=== PATIENT | male | born 1965 | race Caucasian/White ===

== ENCOUNTER 2016-07-12 13:18 | Emergency (ER) | payer SELFPAY ==
[2016-07-12 14:17] LABS: ABSOLUTE BASOPHILS # (AUTO) 0.1 10^3/uL (0.0-0.2); ABSOLUTE EOSINOPHILS # (AUTO) 0.2 10^3/uL (0.0-0.6); ABSOLUTE LYMPHOCYTES (AUTO) 1.9 10^3/uL (0.5-4.7); ABSOLUTE MONOCYTES (AUTO) 0.6 10^3/uL (0.1-1.4); ABSOLUTE NEUT (AUTO) 2.5 10^3/uL (1.7-8.2); BASOPHILS % (AUTO) 1.1 % (0-2); EOSINOPHILS % (AUTO) 3.4 % (0-6); HEMATOCRIT 43.6 % (37.9-51.0); HEMOGLOBIN 15.4 g/dL (13.5-17.0); HGB HCT DIFFERENCE 2.6; LYMPHOCYTES % (AUTO) 36.4 % (13-45); MEAN CORPUSCULAR HGB CONC 35.3 g/dL (32.0-36.0); MEAN CORPUSCULAR VOLUME 99 fl (80-97); MONOCYTES % (AUTO) 11.6 % (3-13); RED BLOOD COUNT 4.39 10^6/uL (4.35-5.55); RED CELL DISTRIBUTION WIDTH 13.8 % (11.5-14.0); SEGMENTED NEUTROPHILS % (AUTO) 47.5 % (42-78); WHITE BLOOD COUNT 5.2 10^3/uL (4.0-10.5)
--- NOTE | 2016-07-12 14:54 | ER Document Report ---
ED General - General Time seen by provider: 14:10 Mode of Arrival: Medic Information source: Patient TRAVEL OUTSIDE OF THE [place] IN LAST 30 DAYS: No - HPI Patient complains to provider of: Chest pain and left arm numbness Onset: Other - 3-4 weeks ago Onset/Duration: Constant Associated symptoms: Other - see above <AARON COLVIN - Last Filed: 07/12/16 15:00> <AMADOU MORTON - Last Filed: 07/12/16 16:27> - General Chief Complaint: Chest Pain Stated Complaint: FACIAL SWELLING Notes: 51-year-old male with no history of cardiac disease presents to the ED via EMS complaining of substernal chest pain that started 3-4 weeks ago. Patient states that the pain has occurred daily and intermittently throughout the past 3 -4 weeks. The duration of the pain varies and lasts for minutes to all day. Patient states that he usually gets a racing heart associated with the chest pain. Patient is additionally complaining of left arm pain and numbness to digits 3, 4, and 5 of the left hand. Patient states that he is feeling very tired and is unable to work. Patient states he is drinking normally but has lost his appetite and is not eating anymore. Patient additionally complains of diarrhea and shortness of breath. Patient is requesting to be admitted for his chronic pancreatitis. He admits to having withdrawals secondary to opiate dependency. Patient denies having a primary care provider, and states that he has not seen anyone in the past 4 weeks regarding his symptoms. Patient also denies being on any medications. Patient states he is a smoker and occasionally drinks alcohol. (AARON COLVIN) - Related Data Allergies/Adverse Reactions: No Known Allergies Allergy (Verified 03/18/15 17:34) Past Medical History - General Information source: Patient - Social History Smoking Status: Current Every Day Smoker Frequency of alcohol use: Occasional Drug Abuse: None Family History: Reviewed & Not Pertinent - Past Medical History Cardiac Medical History: Reports: None Renal/ Medical History: Denies: Hx Peritoneal Dialysis GI Medical History: Reports: Hx Ulcer Past Surgical History: Reports: Hx Abdominal Surgery - HERNIA, Hx Herniorrhaphy - Immunizations Hx Diphtheria, Pertussis, Tetanus Vaccination: No <AARON COLVIN - Last Filed: 07/12/16 15:00> Review of Systems - Review of Systems Constitutional: See HPI, Malaise EENT: No symptoms reported Cardiovascular: See HPI, Chest pain, Heart racing Respiratory: See HPI, Short of breath - not currently Gastrointestinal: See HPI, Diarrhea, Poor appetite. denies: Nausea, Vomiting Genitourinary: No symptoms reported Male Genitourinary: No symptoms reported Musculoskeletal: See HPI, Other - left arm pain Skin: No symptoms reported Hematologic/Lymphatic: No symptoms reported Neurological/Psychological: No symptoms reported, Numbness - left 3, 4, and 5 digits. denies: Anxiety -: Yes All other systems reviewed and negative <AARON COLVIN - Last Filed: 07/12/16 15:00> Physical Exam - General General appearance: Alert In distress: None - HEENT Head: Normocephalic, Atraumatic Eyes: Normal Conjunctiva: Normal Cornea: Normal Extraocular movements intact: Yes Eyelashes: Normal Pupils: PERRL Mouth/Lips: Normal Mucous membranes: Normal Pharynx: Normal - Respiratory Respiratory status: No respiratory distress Breath sounds: Normal - Cardiovascular Rhythm: Regular Heart sounds: Normal auscultation Pulses: Normal: Radial Normal capillary refill: Yes - Abdominal Inspection: Normal - Back Back: Normal - Extremities General upper extremity: Normal inspection, Normal ROM General lower extremity: Normal inspection, Normal ROM - Neurological Neuro grossly intact: Yes Cognition: Normal Orientation: AAOx4 Mia Coma Scale Eye Opening: Spontaneous Mia Coma Scale Verbal: Oriented Mia Coma Scale Motor: Obeys Commands Mia Coma Scale Total: 15 Speech: Normal - Psychological Associated symptoms: Normal affect, Tearful - Skin Skin Temperature: Warm Skin Moisture: Dry Skin Color: Normal <AARON COLVIN - Last Filed: 07/12/16 15:00> <AMADOU MORTON - Last Filed: 07/12/16 16:27> - Vital signs Vitals: Temp Pulse Resp BP Pulse Ox 98.5 F 98 18 156/87 H 97 07/12/16 13:39 07/12/16 13:39 07/12/16 13:39 07/12/16 13:39 07/12/16 13:39 (AARON COLVIN) (AMADOU MORTON) Course - Laboratory Result Diagrams: 07/12/16 13:33 07/12/16 14:41 <AARON COLVIN - Last Filed: 07/12/16 15:00> - Laboratory Result Diagrams: 07/12/16 13:33 07/12/16 14:41 <AMADOU MORTON - Last Filed: 07/12/16 16:27> - Re-evaluation Re-evalutation: 07/12/16 16:21 I personally performed the services described in the documentation, reviewed and edited the documentation which was dictated to my scribe in my presence, and it accurately records my words and actions. 51-year-old male that presents emergency per with a constellation of symptoms all of which been going on for 3 weeks. He says he has swelling in his face I don't appreciate any swelling in his face. He denies any dental problems difficulty breathing or swallowing nor do I see anything on examination of concern. He said for the past 3 weeks he's had constant left-sided chest pain when he moves or stretches. It has been constant 24 7 for 3 weeks and has not changed. 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 He said that the last 2 digits on his left hand have also been taking relief for the last 3 weeks as well. He denies any headache new blurred vision double vision history of trauma or fall. He denies any exertional chest pain or shortness of breath occasionally gets diarrhea but no blood in the stool. He is a chronic alcoholic with his alcohol level today in the 200 range. He has a history of chronic pancreatitis. His AST a LT and lipase are improved today with the exception of a LT. The lipase is normal at 156 no acute abdominal epigastric tenderness vomiting or concerns for acute pancreatitis. He also admits to getting Percocet on the street. Explained to him not to use anything with Tylenol in it with his liver problems. EKG chest x-ray cardiac enzymes are negative do not think that this is an acute cardiac event. I do believe however the patient has a constellation of problems including his alcoholism his substance abuse is elevated blood pressure although I checked his blood pressure at the bedside prior to discharge and is 125/91. For this reason I explained to him that I want him to follow up primary care physician at the clinic in 2-3 days. And discussed reasons for ED return sooner (AMADOU MORTON) - Vital Signs Vital signs: Temp Pulse Resp BP Pulse Ox 98.5 F 98 11 L 156/87 H 96 07/12/16 13:39 02/07/17 13:39 07/12/16 14:00 07/12/16 13:39 07/12/16 16:00 (AARON COLVIN) (AMADOU MORTON) - Laboratory Laboratory results interpreted by me: 07/12/16 07/12/16 13:33 14:41 MCV 99 H MCH 35.0 H Plt Count 133 L Sodium 134.0 L Chloride 95 L BUN 6 L Glucose 70 L Total Bilirubin 1.6 H AST 599 H ALT 404 H (AARON COLVIN) (AMADOU MORTON) - EKG Interpretation by Me Additional EKG results interpreted by me: 07/12/16 16:23 EKG interpreted by myself to reveal sinus rhythm at 99 bpm with no acute ST segment elevation or depression (AMADOU MORTON) Discharge <AARON COLVIN - Last Filed: 07/12/16 15:00> <AMADOU MORTON - Last Filed: 07/12/16 16:27> - Discharge Clinical Impression: chronic alcoholism, Narcotic abuse Chest pain Qualifiers: Chest pain type: unspecified Qualified Code(s): R07.9 - Chest pain, unspecified Chronic pancreatitis Qualifiers: Pancreatitis type: other Qualified Code(s): K86.1 - Other chronic pancreatitis Condition: Stable Disposition: HOME, SELF-CARE Instructions: Chest Pain of Unclear Cause ([facility]) Additional Instructions: Chest Pain of Unclear Cause, chronic alcoholism with elevated liver enzymes, narcotic substance abuse The exact cause of your chest pain isn't clear. Fortunately, there is no evidence of a dangerous medical condition. Further testing may be required to find the source of the pain. Most often, we find that this pain is coming from the chest wall -- the muscles or rib joints in the chest. But chest pain can come from the lung and lung lining, the esophagus, the heart valves or heart lining, and even the stomach or gallbladder. Rest. Eat lightly until the pain is gone. We may prescribe medicine for pain and inflammation. You should call the physician immediately if the pain radiates to the shoulder, jaw or arms; if you start to run a fever or develop a cough; or if you develop shortness of breath, or other new or alarming symptoms. Referrals: [facility] [Provider Group] - Follow up tomorrow ([facility] for a follow -up appointment to be seen in 2-3 days return for increasing worsening or new symptoms) Scribe Documentation - Scribe Written by Scribe:: Ananth Milligan, 07/12/2016 1500 acting as scribe for :: Sukhwinder <AARON COLVIN - Last Filed: 07/12/16 15:00>
[2016-07-12 15:09] LABS: ALANINE AMINOTRANSFERASE 404 U/L (21-72); ALBUMIN 4.6 g/dL (3.5-5.0); ALCOHOL 234 mg/dL (NONE DETECTED); ALKALINE PHOSPHATASE 90 U/L (38-126); ANION GAP 14 (5-19); ASPARTATE AMINO TRANSFERASE 599 U/L (17-59); BILIRUBIN,TOTAL 1.6 mg/dL (0.2-1.3); BLOOD UREA NITROGEN 6 mg/dL (7-20); CALCIUM 8.7 mg/dL (8.4-10.2); CARBON DIOXIDE 25 mmol/L (22-30); CHLORIDE 95 mmol/L (98-107); CREATININE RESULT 0.56 mg/dL (0.52-1.25); GLUCOSE 70 mg/dL (75-110); LIPASE 156.4 U/L (23-300); POTASSIUM 4.4 mmol/L (3.6-5.0); TOTAL PROTEIN 7.2 g/dL (6.3-8.2)
[2016-07-12 15:20] LABS: TROPONIN I < 0.012 ng/mL
[2016-07-12 16:30] VITALS: BP 125/91
--- NOTE | 2016-07-12 18:57 | EKG REPORT ---
SEVERITY:- ABNORMAL ECG - SINUS RHYTHM RIGHT ATRIAL ABNORMALITY : Confirmed by: Kunal Sepulveda MD 12-Jul-2016 18:56:46
== END 2016-07-12 16:43 | disposition home or self-care (01) ==
LOC: ER 13:18
DX: R07.9 Chest pain, unspecified (principal); K86.1 Other chronic pancreatitis; R53.81 Other malaise; R20.0 Anesthesia of skin; F17.200 Nicotine dependence, unspecified, uncomplicated
CPT/HCPCS: 36415; 71010; 80053; 80307; 83690; 83880; 84484; 85025; 93005; 93010; 99285

== ENCOUNTER 2016-07-18 22:18 | Emergency (ER) | payer SELFPAY ==
[2016-07-18] MEDS ORDERED: LIDOCAINE 1% INJ-PF (10 MG/ML) 30 ML SDV INJ ONE (23:21)
[2016-07-18] MEDS ORDERED: DIPH/PERTUSS(ACELL)/TETANUS VAC/PF 0.5 ML SYR (>=10YO) IM ONE (23:24)
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
[2016-07-19] MEDS ORDERED: OXYCODONE-ACETAMINOPHEN 5-325 MG TABLET PO ONE (00:40)
[2016-07-19] MEDS ORDERED: PENICILLIN V POTASSIUM 500 MG TABLET PO ONE (00:40)
[2016-07-19] MEDS ORDERED: HYDROCODONE/ACETAMINOPHEN 5-325 MG 6 TAB/DSPK PO PRN (01:39)
[2016-07-19 01:54] VITALS: BP 134/82
== END 2016-07-19 01:55 | disposition home or self-care (01) ==
LOC: ER 22:18
PROC: 0HQFXZZ Repair Right Hand Skin, External Approach (ICD-10-PCS; principal; 2016-07-18)
DX: S61.214A Laceration without foreign body of right ring finger without damage to nail, initial encounter (principal); S00.12XA Contusion of left eyelid and periocular area, initial encounter; S00.11XA Contusion of right eyelid and periocular area, initial encounter; Y04.2XXA Assault by strike against or bumped into by another person, initial encounter; Y93.84 Activity, sleeping; R51 Headache; K02.9 Dental caries, unspecified; K08.89 Other specified disorders of teeth and supporting structures; H53.8 Other visual disturbances; F17.200 Nicotine dependence, unspecified, uncomplicated
CPT/HCPCS: 99284; 90471; 70450; 70486; 72125; 90715; 12001; J3490

== ENCOUNTER 2016-07-26 15:18 | Emergency (ER) | payer SELFPAY ==
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
[2016-07-26 16:14] LABS: ABSOLUTE BASOPHILS # (AUTO) 0.2 10^3/uL (0.0-0.2); ABSOLUTE EOSINOPHILS # (AUTO) 0.2 10^3/uL (0.0-0.6); ABSOLUTE LYMPHOCYTES (AUTO) 2.2 10^3/uL (0.5-4.7); ABSOLUTE NEUT (AUTO) 3.2 10^3/uL (1.7-8.2); BASOPHILS % (AUTO) 3.1 % (0-2); EOSINOPHILS % (AUTO) 2.9 % (0-6); HEMOGLOBIN 14.2 g/dL (13.5-17.0); HGB HCT DIFFERENCE 1.6; LYMPHOCYTES % (AUTO) 32.4 % (13-45); MEAN CORPUSCULAR HEMOGLOBIN 35.2 pg (27.0-33.4); MEAN CORPUSCULAR HGB CONC 34.6 g/dL (32.0-36.0); MEAN CORPUSCULAR VOLUME 102 fl (80-97); MONOCYTES % (AUTO) 14.1 % (3-13); RED BLOOD COUNT 4.03 10^6/uL (4.35-5.55); SEGMENTED NEUTROPHILS % (AUTO) 47.5 % (42-78); WHITE BLOOD COUNT 6.8 10^3/uL (4.0-10.5)
[2016-07-26 16:16] LABS: APPEARANCE,URINE CLEAR; BILIRUBIN,URINE NEGATIVE (NEGATIVE); GLUCOSE, URINE NEGATIVE (NEGATIVE); KETONES,URINE NEGATIVE (NEGATIVE); LEUKOCYTE ESTERASE,URINE NEGATIVE (NEGATIVE); NITRITE,URINE NEGATIVE (NEGATIVE); PROTEIN,URINE NEGATIVE (NEGATIVE); URINE SPECIFIC GRAVITY 1.005; UROBILINOGEN,URINE NEGATIVE mg/dL (<2.0)
[2016-07-26 16:19] LABS: PROTHROMBIN TIME 11.5 SEC (11.4-15.4)
[2016-07-26 16:20] LABS: PARTIAL THROMBOPLASTIN TIME 28.7 SEC (23.5-35.8)
[2016-07-26 16:32] LABS: ALANINE AMINOTRANSFERASE 79 U/L (21-72); ALKALINE PHOSPHATASE 93 U/L (38-126); ANION GAP 16 (5-19); ASPARTATE AMINO TRANSFERASE 112 U/L (17-59); BILIRUBIN,TOTAL 0.6 mg/dL (0.2-1.3); BLOOD UREA NITROGEN 11 mg/dL (7-20); CALCIUM 9.5 mg/dL (8.4-10.2); CARBON DIOXIDE 25 mmol/L (22-30); CHLORIDE 108 mmol/L (98-107); CREATININE RESULT 0.55 mg/dL (0.52-1.25); GLUCOSE 91 mg/dL (75-110); POTASSIUM 4.5 mmol/L (3.6-5.0); SODIUM 148.8 mmol/L (137-145); TOTAL PROTEIN 7.9 g/dL (6.3-8.2); URINE BARBITURATES SCREEN NEGATIVE; URINE METHADONE SCREEN NEGATIVE; URINE OPIATES LOW NEGATIVE; URINE PHENCYCLIDINE SCREEN NEGATIVE
[2016-07-26 16:44] LABS: ALCOHOL 373 mg/dL (NONE DETECTED)
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
[2016-07-26 21:33] VITALS: BP 139/82
--- NOTE | 2016-07-26 22:04 | EKG REPORT ---
SEVERITY:- NORMAL ECG - SINUS RHYTHM : Confirmed by: Yessi Turpin MD 26-Jul-2016 22:03:50
== END 2016-07-26 21:32 | disposition home or self-care (01) ==
LOC: ER 15:18
DX: S06.0X0A Concussion without loss of consciousness, initial encounter (principal); Y09 Assault by unspecified means; F10.229 Alcohol dependence with intoxication, unspecified; R51 Headache; H53.149 Visual discomfort, unspecified; R00.0 Tachycardia, unspecified; R11.0 Nausea; R41.3 Other amnesia; F17.200 Nicotine dependence, unspecified, uncomplicated; R41.0 Disorientation, unspecified
CPT/HCPCS: 36415; 80053; 80307; 81001; 85025; 85610; 85730; 93005; 93010; 99284

== ENCOUNTER 2017-03-05 15:22 | Emergency (ER) | payer SELFPAY ==
[2017-03-05] MEDS ORDERED: ONDANSETRON HCL INJ/PF 4 MG/2 ML SDV IV ONE (15:44)
[2017-03-05] MEDS ORDERED: NORMAL SALINE 1000 ML 1,000 ML IV PRN (15:44)
--- NOTE | 2017-03-05 15:54 | ER Document Report ---
ED Medical Screen (RME) - General Chief Complaint: Flank Pain Stated Complaint: FLANK PAIN Time Seen by Provider: 03/05/17 15:43 Mode of Arrival: Wheelchair Information source: Patient TRAVEL OUTSIDE OF THE [place] IN LAST 30 DAYS: No - HPI Patient complains to provider of: Bilateral flank pain, facial swelling Notes: 03/05/17 15:53 Patient is a 52-year-old male presenting to the emergency room today complaining of bilateral flank pain this been going on for the past few days and worsening, he also reports facial swelling with facial pain, nausea, patient has a history of pancreatitis from chronic alcoholism, states he is cut back to 1 [employer] hard lemonade daily - Related Data Allergies/Adverse Reactions: No Known Allergies Allergy (Verified 03/05/17 15:39) Past Medical History Renal/ Medical History: Denies: Hx Peritoneal Dialysis GI Medical History: Reports: Hx Ulcer Past Surgical History: Reports: Hx Abdominal Surgery - HERNIA, Hx Herniorrhaphy - Immunizations Hx Diphtheria, Pertussis, Tetanus Vaccination: No Physical Exam - Vital signs Vitals: Temp Pulse Resp BP Pulse Ox 97.6 F 99 16 136/93 H 95 03/05/17 15:35 03/05/17 15:35 03/05/17 15:35 03/05/17 15:35 03/05/17 15:35 Course - Vital Signs Vital signs: Temp Pulse Resp BP Pulse Ox 97.6 F 99 16 136/93 H 95 03/05/17 15:35 03/05/17 15:35 03/05/17 15:35 03/05/17 15:35 03/05/17 15:35
--- NOTE | 2017-03-05 17:35 | ER Document Report ---
ED General - General Mode of Arrival: Wheelchair Information source: Patient TRAVEL OUTSIDE OF THE [place] IN LAST 30 DAYS: No <KATHIE LUIS - Last Filed: 03/05/17 18:04> <FABI NIX - Last Filed: 03/05/17 20:48> - General Chief Complaint: Flank Pain Stated Complaint: FLANK PAIN Time Seen by Provider: 03/05/17 15:43 Notes: Patient is a 52 year old male presenting to the emergency department for back pain, facial and hand swelling, nausea, and right lower abdominal pain. Patient states that her symptoms have been present for just about a week. Patient states his symptoms are worsening. Patient has a history of alcoholic pancreatitis and states that he has limited his alcohol intake to 1 Code[employer] hard lemonade per day. Patient has a history of a hernia repair. Patient takes no regular medications and has no known drug allergies. Patient does not have primary care physician. (KATHIE LUIS) - Related Data Allergies/Adverse Reactions: No Known Allergies Allergy (Verified 03/05/17 15:39) Home Medications: Current Home Medications No Home Medications 03/05/17 [History] Past Medical History - General Information source: Patient - Social History Smoking Status: Current Every Day Smoker Chew tobacco use (# tins/day): No Smoking Education Provided: No Frequency of alcohol use: Social Drug Abuse: None Family History: None Patient has suicidal ideation: No Patient has homicidal ideation: No GI Medical History: Reports: Hx Ulcer Past Surgical History: Reports: Hx Abdominal Surgery - HERNIA, Hx Herniorrhaphy - Immunizations Hx Diphtheria, Pertussis, Tetanus Vaccination: No <KATHIE LUIS - Last Filed: 03/05/17 18:04> Review of Systems - Review of Systems Constitutional: No symptoms reported EENT: See HPI Cardiovascular: No symptoms reported Respiratory: No symptoms reported Gastrointestinal: No symptoms reported Genitourinary: No symptoms reported Male Genitourinary: No symptoms reported Musculoskeletal: See HPI, Back pain Skin: See HPI Hematologic/Lymphatic: No symptoms reported Neurological/Psychological: No symptoms reported -: Yes All other systems reviewed and negative <KATHIE LUIS - Last Filed: 03/05/17 18:04> Physical Exam - Vital signs Interpretation: Normal <KATHIE LUIS - Last Filed: 03/05/17 18:04> <FABI NIX - Last Filed: 03/05/17 20:48> - Vital signs Vitals: Temp Pulse Resp BP Pulse Ox 97.6 F 99 16 136/93 H 95 03/05/17 15:35 03/05/17 15:35 03/05/17 15:35 03/05/17 15:35 03/05/17 15:35 - Notes Notes: GENERAL: Alert, interacts well. Mild distress. HEAD: Normocephalic, atraumatic. Slight swelling to maxillary regions bilaterally. EYES: Appear normal. Pupils equal, round, and reactive to light. ENT: Moist mucus membranes, tongue midline. Strong EtOH odor on breath. Nasal congestion with cough. NECK: Full range of motion. Supple. Trachea midline. LUNGS: Rhonchi and wheezing. No respiratory distress. HEART: Regular rate and rhythm. No murmurs, gallops, or rubs. ABDOMEN: Soft, diffuse tenderness to palpation. Low right lower quadrant has a condiloma extending 8 cm in length. Hyperresonant to percussion. Non-distended. Normal bowel sounds. BACK: Tenderness to palpate the lumbar spinal musculature. EXTREMITIES: Moves all 4 extremities spontaneously. Normal strength. Normal radial pulses bilaterally. Tenderness to palpate the musculature of the right groin. No edema to lower extremities bilaterally. Slight minor swelling over the MCP joints of the hands bilaterally. Normal capillary refill. NEUROLOGICAL: Alert and oriented x3. Normal speech. No focal neurological deficits. GCS 15. PSYCH: Normal affect, normal mood. SKIN: Warm, dry, normal turgor. (KATHIE LUIS) Course - Laboratory Result Diagrams: 03/05/17 17:30 03/05/17 17:30 <KATHIE LUIS - Last Filed: 03/05/17 18:04> - Laboratory Result Diagrams: 03/05/17 17:30 03/05/17 17:30 <FABI NIX - Last Filed: 03/05/17 20:48> - Vital Signs Vital signs: Temp Pulse Resp BP Pulse Ox 97.6 F 71 16 129/88 H 95 03/05/17 19:36 03/05/17 19:36 03/05/17 15:35 03/05/17 19:36 03/05/17 19:36 - Laboratory Laboratory results interpreted by me: 03/05/17 03/05/17 17:30 17:30 RBC 3.79 L MCV 104 H MCH 36.7 H RDW 19.0 H Sodium 149.6 H Potassium 3.3 L Chloride 109 H BUN 4 L Creatinine 0.50 L Calcium 8.3 L Total Protein 5.6 L Albumin 3.2 L Discharge <KATHIE LUIS - Last Filed: 03/05/17 18:04> <FABI NIX - Last Filed: 03/05/17 20:48> - Discharge Clinical Impression: Swelling of face, Swelling of both hands, Right inguinal pain Acute alcohol intoxication Qualifiers: Complication of substance-induced condition: uncomplicated Qualified Code(s): F10.929 - Alcohol use, unspecified with intoxication, unspecified Lumbar back pain Qualifiers: Chronicity: unspecified Back pain laterality: bilateral Sciatica presence: without sciatica Qualified Code(s): M54.5 - Low back pain Condition: Stable Disposition: HOME, SELF-CARE Additional Instructions: The swelling you have noticed to your face and hands is probably related to chronic alcohol abuse. Chronic alcoholism contributes to nutritional abnormalities such as a low albumin and protein in your bloodstream. Low albumin and protein in your bloodstream often leads to swelling. The low back pain and right groin pain is probably related to muscle strain. For now you should stop drinking and eating nutritious diet. If you feel you cannot stop drinking on your own, go to [facility] tomorrow and ask for help with alcohol dependency. RETURN TO THE EMERGENCY ROOM IF ANY NEW OR WORSENING SYMPTOMS. Referrals: [facility] [Outside] - Follow up tomorrow [place] Attestation: 03/05/17 18:12 I personally performed the services described in the documentation, reviewed and edited the documentation which was dictated to the scribe in my presence, and it accurately records my words and actions. (FABI NIX) Scribe Documentation - Scribe Written by Ananth:: Ananth Muro, 03/05/2017 1800 acting as scribe for :: Marcial <KATHIE LUIS - Last Filed: 03/05/17 18:04>
[2017-03-05 17:43] LABS: ABSOLUTE BASOPHILS # (AUTO) 0.1 10^3/uL (0.0-0.2); ABSOLUTE EOSINOPHILS # (AUTO) 0.1 10^3/uL (0.0-0.6); ABSOLUTE LYMPHOCYTES (AUTO) 2.3 10^3/uL (0.5-4.7); ABSOLUTE MONOCYTES (AUTO) 0.4 10^3/uL (0.1-1.4); ABSOLUTE NEUT (AUTO) 3.5 10^3/uL (1.7-8.2); BASOPHILS % (AUTO) 0.9 % (0-2); EOSINOPHILS % (AUTO) 1.8 % (0-6); HEMATOCRIT 39.2 % (37.9-51.0); HEMOGLOBIN 13.9 g/dL (13.5-17.0); HGB HCT DIFFERENCE 2.5; LYMPHOCYTES % (AUTO) 36.4 % (13-45); MEAN CORPUSCULAR HEMOGLOBIN 36.7 pg (27.0-33.4); MEAN CORPUSCULAR HGB CONC 35.4 g/dL (32.0-36.0); MEAN CORPUSCULAR VOLUME 104 fl (80-97); MONOCYTES % (AUTO) 6.5 % (3-13); RED BLOOD COUNT 3.79 10^6/uL (4.35-5.55); SEGMENTED NEUTROPHILS % (AUTO) 54.4 % (42-78); WHITE BLOOD COUNT 6.4 10^3/uL (4.0-10.5)
[2017-03-05 18:04] LABS: ALANINE AMINOTRANSFERASE 36 U/L (21-72); ALBUMIN 3.2 g/dL (3.5-5.0); ALCOHOL 288 mg/dL (NONE DETECTED); ALKALINE PHOSPHATASE 74 U/L (38-126); ANION GAP 11 (5-19); ASPARTATE AMINO TRANSFERASE 36 U/L (17-59); BILIRUBIN,DIRECT 0.3 mg/dL (0.0-0.4); BILIRUBIN,TOTAL 0.7 mg/dL (0.2-1.3); BLOOD UREA NITROGEN 4 mg/dL (7-20); CALCIUM 8.3 mg/dL (8.4-10.2); CARBON DIOXIDE 30 mmol/L (22-30); CHLORIDE 109 mmol/L (98-107); GLUCOSE 81 mg/dL (75-110); LIPASE 73.6 U/L (23-300); POTASSIUM 3.3 mmol/L (3.6-5.0); SODIUM 149.6 mmol/L (137-145); TOTAL PROTEIN 5.6 g/dL (6.3-8.2)
[2017-03-05 18:17] LABS: C-REACTIVE PROTEIN 5.1 mg/L (<10.0); MAGNESIUM 1.9 mg/dL (1.6-2.3)
[2017-03-05 18:49] LABS: APPEARANCE,URINE CLEAR; BILIRUBIN,URINE NEGATIVE (NEGATIVE); GLUCOSE, URINE NEGATIVE (NEGATIVE); KETONES,URINE NEGATIVE (NEGATIVE); LEUKOCYTE ESTERASE,URINE NEGATIVE (NEGATIVE); NITRITE,URINE NEGATIVE (NEGATIVE); PROTEIN,URINE NEGATIVE (NEGATIVE); URINE SPECIFIC GRAVITY 1.004; UROBILINOGEN,URINE NEGATIVE mg/dL (<2.0)
[2017-03-05 19:03] LABS: URINE BARBITURATES SCREEN NEGATIVE; URINE METHADONE SCREEN NEGATIVE; URINE OPIATES LOW NEGATIVE; URINE PHENCYCLIDINE SCREEN NEGATIVE
[2017-03-05 19:38] VITALS: BP 129/88
== END 2017-03-05 19:36 | disposition home or self-care (01) ==
LOC: ER 15:22
DX: R22.0 Localized swelling, mass and lump, head (principal); M79.89 Other specified soft tissue disorders; F10.929 Alcohol use, unspecified with intoxication, unspecified; M54.5 Low back pain; R10.9 Unspecified abdominal pain; M54.9 Dorsalgia, unspecified; R51 Headache; F17.200 Nicotine dependence, unspecified, uncomplicated
CPT/HCPCS: 99284; 96361; 96374; 36415; 80307 ×2; 83690; 83735; 85025; 85652; 86140; 80053; 81001; J2405; J7030

== ENCOUNTER 2017-03-14 16:24 | Inpatient (IN) | payer SELFPAY ==
[2017-03-14] MEDS ORDERED: NORMAL SALINE 1000 ML 1,000 ML IV ONE (16:55)
--- NOTE | 2017-03-14 16:57 | ER Document Report ---
ED Medical Screen (RME) - General Chief Complaint: Alcohol Withdrawl Stated Complaint: ABDOMINAL PAIN,VOMITING/MED CLEARANCE Time Seen by Provider: 03/14/17 16:54 Notes: Patient states that he drinks daily and uses opioids. He states he was referred here by [facility] for placement. He states he has been nauseated and vomiting recently. He states he has not used opioids for approximately 4 days. He states he last drank today around noon. TRAVEL OUTSIDE OF THE [place] IN LAST 30 DAYS: No - Related Data Allergies/Adverse Reactions: No Known Allergies Allergy (Verified 03/05/17 15:39) Past Medical History - Social History Chew tobacco use (# tins/day): No Frequency of alcohol use: Social Drug Abuse: Prescription drugs Renal/ Medical History: Denies: Hx Peritoneal Dialysis GI Medical History: Reports: Hx Ulcer Past Surgical History: Reports: Hx Abdominal Surgery - HERNIA, Hx Herniorrhaphy - Immunizations Hx Diphtheria, Pertussis, Tetanus Vaccination: No History of Influenza Vaccine for 03/2017 - 08/2017 Season: No Physical Exam - Vital signs Vitals: Temp Pulse BP Pulse Ox 98.7 F 129 H 124/88 H 95 03/14/17 16:40 03/14/17 16:40 03/14/17 16:40 03/14/17 16:40 Course - Vital Signs Vital signs: Temp Pulse Resp BP Pulse Ox 98.7 F 129 H 124/88 H 95 03/14/17 16:40 03/14/17 16:40 03/14/17 16:40 03/14/17 16:40
[2017-03-14 18:57] LABS: ABSOLUTE BASOPHILS # (AUTO) 0.1 10^3/uL (0.0-0.2); ABSOLUTE LYMPHOCYTES (AUTO) 2.5 10^3/uL (0.5-4.7); ABSOLUTE MONOCYTES (AUTO) 0.8 10^3/uL (0.1-1.4); ABSOLUTE NEUT (AUTO) 3.6 10^3/uL (1.7-8.2); BASOPHILS % (AUTO) 0.8 % (0-2); EOSINOPHILS % (AUTO) 0.6 % (0-6); HEMATOCRIT 42.1 % (37.9-51.0); HEMOGLOBIN 14.8 g/dL (13.5-17.0); HGB HCT DIFFERENCE 2.3; MEAN CORPUSCULAR HEMOGLOBIN 36.8 pg (27.0-33.4); MEAN CORPUSCULAR VOLUME 105 fl (80-97); RED BLOOD COUNT 4.01 10^6/uL (4.35-5.55); RED CELL DISTRIBUTION WIDTH 18.4 % (11.5-14.0); SEGMENTED NEUTROPHILS % (AUTO) 50.6 % (42-78); WHITE BLOOD COUNT 7.1 10^3/uL (4.0-10.5)
[2017-03-14 19:03] LABS: APPEARANCE,URINE CLEAR; BILIRUBIN,URINE NEGATIVE (NEGATIVE); GLUCOSE, URINE NEGATIVE (NEGATIVE); KETONES,URINE NEGATIVE (NEGATIVE); LEUKOCYTE ESTERASE,URINE NEGATIVE (NEGATIVE); NITRITE,URINE NEGATIVE (NEGATIVE); PROTEIN,URINE NEGATIVE (NEGATIVE); URINE SPECIFIC GRAVITY 1.014; UROBILINOGEN,URINE NEGATIVE mg/dL (<2.0)
[2017-03-14 19:13] LABS: ALANINE AMINOTRANSFERASE 37 U/L (21-72); ALCOHOL 266 mg/dL (NONE DETECTED); ALKALINE PHOSPHATASE 95 U/L (38-126); ANION GAP 15 (5-19); ASPARTATE AMINO TRANSFERASE 68 U/L (17-59); BILIRUBIN,DIRECT 0.3 mg/dL (0.0-0.4); BILIRUBIN,TOTAL 1.4 mg/dL (0.2-1.3); BLOOD UREA NITROGEN 7 mg/dL (7-20); CALCIUM 8.8 mg/dL (8.4-10.2); CARBON DIOXIDE 34 mmol/L (22-30); CHLORIDE 102 mmol/L (98-107); CREATININE RESULT 0.52 mg/dL (0.52-1.25); GLUCOSE 88 mg/dL (75-110); LIPASE 120.8 U/L (23-300); POTASSIUM 3.4 mmol/L (3.6-5.0); SODIUM 150.8 mmol/L (137-145); TOTAL PROTEIN 6.7 g/dL (6.3-8.2)
[2017-03-14 19:22] LABS: URINE BARBITURATES SCREEN NEGATIVE; URINE METHADONE SCREEN NEGATIVE; URINE OPIATES LOW NEGATIVE; URINE PHENCYCLIDINE SCREEN NEGATIVE
[2017-03-14] MEDS ORDERED: PANTOPRAZOLE SODIUM 40 MG VIAL IV ONE (20:26)
[2017-03-14] MEDS ORDERED: ONDANSETRON HCL INJ/PF 4 MG/2 ML SDV IV ONE (20:27)
--- NOTE | 2017-03-14 20:29 | ER Document Report ---
ED General - General Chief Complaint: Alcohol Withdrawl Stated Complaint: ABDOMINAL PAIN,VOMITING/MED CLEARANCE Time Seen by Provider: 03/14/17 16:54 Notes: Patient is a 52-year-old male with a history of alcohol and street opiate drug abuse that comes emergency department for chief complaint of vomiting, shaking, diarrhea, and bloody stool. He states that for 3 days he has had mixed black stools and now he is starting to have some bright red stools in addition to this with the diarrhea. He denies hematemesis. He does have a history of alcohol withdrawals. He has gone through detox within the past year in [place]. He denies any daily medications. TRAVEL OUTSIDE OF THE [place] IN LAST 30 DAYS: No - Related Data Allergies/Adverse Reactions: No Known Allergies Allergy (Verified 03/05/17 15:39) Past Medical History - General Information source: Patient - Social History Smoking Status: Current Every Day Smoker Chew tobacco use (# tins/day): No Frequency of alcohol use: Social Drug Abuse: Prescription drugs Lives with: Friend Family History: None Renal/ Medical History: Denies: Hx Peritoneal Dialysis GI Medical History: Reports: Hx Ulcer Past Surgical History: Reports: Hx Abdominal Surgery - HERNIA, Hx Herniorrhaphy - Immunizations Hx Diphtheria, Pertussis, Tetanus Vaccination: No Review of Systems - Review of Systems Constitutional: See HPI EENT: No symptoms reported Cardiovascular: No symptoms reported Respiratory: No symptoms reported Gastrointestinal: See HPI Genitourinary: No symptoms reported Male Genitourinary: No symptoms reported Musculoskeletal: No symptoms reported Skin: No symptoms reported Hematologic/Lymphatic: No symptoms reported Neurological/Psychological: See HPI Physical Exam - Vital signs Vitals: Temp Pulse BP Pulse Ox 98.7 F 129 H 124/88 H 95 03/14/17 16:40 03/14/17 16:40 03/14/17 16:40 03/14/17 16:40 Interpretation: Normal - General General appearance: Other - Patient somewhat disheveled and mildly uncomfortable in appearance but he is not in distress - HEENT Head: Normocephalic, Atraumatic Eyes: Normal Extraocular movements intact: Yes Eyelashes: Normal Pupils: PERRL Nasal: Normal Mouth/Lips: Normal Mucous membranes: Normal Pharynx: Normal Neck: Normal - Respiratory Respiratory status: No respiratory distress Chest status: Nontender Breath sounds: Normal. No: Decreased air movement, Wheezing Chest palpation: Normal - Cardiovascular Rhythm: Regular, Tachycardia Heart sounds: Normal auscultation, S1 appreciated, S2 appreciated Murmur: No - Abdominal Inspection: Normal Distension: No distension Bowel sounds: Normal Tenderness: Tender - Mild generalized tenderness. No: McBurney's point, March' s sign, Guarding Organomegaly: No organomegaly - Back Back: Normal, Nontender - Extremities General upper extremity: Normal inspection, Nontender, Normal color, Normal ROM , Normal temperature General lower extremity: Normal inspection, Nontender, Normal color, Normal ROM , Normal temperature, Normal weight bearing. No: Salina's sign - Neurological Neuro grossly intact: Yes Cognition: Normal Orientation: AAOx4 Mia Coma Scale Eye Opening: Spontaneous [place]ola Coma Scale Verbal: Oriented [place] Coma Scale Motor: Obeys Commands Leola Coma Scale Total: 15 Speech: Normal Motor strength normal: LUE, RUE, LLE, RLE Sensory: Normal - Skin Skin Temperature: Warm Skin Moisture: Dry Skin Color: Mesfin Course - Re-evaluation Re-evalutation: Patient cristhian in appearance but does not appear to be in withdrawals from alcohol. He was initially very tachycardic but this improved after initial IV fluid bolus. He has not vomited since Zofran. Rectal examination showing trace dried blood, laboratory positive for blood, patient did have a bowel movement at bedside with tarry stools. He has not had another one. He is not hypotensive. No gross bleeding on examination. Hemoglobin is unremarkable. Patient given Protonix bolus and placed on Protonix drip. Because of his history of alcoholism and withdrawals he was given thiamine. Last Pattern Grader confirmed that we have Dr. Beach, gastroenterology coming on in the morning. Discussed with Dr. Coreas. Patient will be admitted to the hospital for upper GI bleed, patient will most likely need treatment for alcohol withdrawals as well. Patient will be admitted to the telemetry. - Vital Signs Vital signs: Temp Pulse Resp BP Pulse Ox 97.2 F 62 12 112/60 98 03/15/17 03:55 03/15/17 03:55 03/15/17 03:55 03/15/17 03:55 03/15/17 03:55 - Laboratory Result Diagrams: 03/14/17 23:50 03/14/17 18:46 Laboratory results interpreted by me: 03/14/17 03/14/17 03/14/17 18:46 18:46 21:30 RBC 4.01 L MCV 105 H MCH 36.8 H RDW 18.4 H PT 16.7 H Sodium 150.8 H Potassium 3.4 L Carbon Dioxide 34 H Total Bilirubin 1.4 H AST 68 H Salicylates < 1.0 L Acetaminophen < 10 L Discharge - Discharge Clinical Impression: Upper GI bleed, Alcohol abuse, Opiate abuse, continuous Condition: Stable Disposition: ADMITTED INPATIENT Admitting Provider: Hospitalist Unit Admitted: Telemetry
[2017-03-14 21:50] LABS: PROTHROMBIN TIME 16.7 SEC (11.4-15.4)
[2017-03-14] MEDS ORDERED: PANTOPRAZOLE SODIUM 40 MG VIAL IV PRN (22:53)
[2017-03-14] MEDS ORDERED: THIAMINE HCL 100 MG in NORMAL SALINE 50 ML IV ONE (22:54)
[2017-03-14] MEDS ORDERED: FOLIC ACID INJ 5 MG/1 ML 10 ML VIAL IV PRN (23:43)
[2017-03-14] MEDS ORDERED: THIAMINE HCL INJ 200 MG/2 ML VIAL IV PRN (23:43)
[2017-03-14] MEDS ORDERED: LORAZEPAM INJ 2 MG/1 ML VIAL IV ONE (23:45)
[2017-03-14] MEDS ORDERED: THIAMINE HCL 100 MG, FOLIC ACID 1 MG in NORMAL SALINE 250 ML IV ONE (23:59)
[2017-03-15 00:05] LABS: HEMATOCRIT 33.8 % (37.9-51.0); HGB HCT DIFFERENCE 2.2; MEAN CORPUSCULAR HEMOGLOBIN 37.5 pg (27.0-33.4); MEAN CORPUSCULAR HGB CONC 35.5 g/dL (32.0-36.0); MEAN CORPUSCULAR VOLUME 106 fl (80-97); RED CELL DISTRIBUTION WIDTH 18.6 % (11.5-14.0); WHITE BLOOD COUNT 5.5 10^3/uL (4.0-10.5)
[2017-03-15] MEDS ORDERED: NICOTINE 14 MG/24 HR PATCH.TD24 TD ONE (00:30)
[2017-03-15 01:26] LABS: URINE BARBITURATES SCREEN NEGATIVE; URINE METHADONE SCREEN NEGATIVE; URINE OPIATES LOW NEGATIVE; URINE PHENCYCLIDINE SCREEN NEGATIVE
[2017-03-15] MEDS: NORMAL SALINE 1000 ML 1,000 ML IV SCH ×2 (02:16→05:44)
[2017-03-15] MEDS ORDERED: PHYTONADIONE INJ 10 MG/1 ML AMPULE SUBCUT ONE (05:30)
[2017-03-15] MEDS: HEPARIN SOD (PORCINE) 5,000 UNIT/ML 1 ML SYRINGE SUBCUT SCH ×2 (05:40→14:49)
[2017-03-15 05:42] LABS: HEMATOCRIT 32.3 % (37.9-51.0); HEMOGLOBIN 11.4 g/dL (13.5-17.0); HGB HCT DIFFERENCE 1.9; MEAN CORPUSCULAR HEMOGLOBIN 37.3 pg (27.0-33.4); MEAN CORPUSCULAR HGB CONC 35.3 g/dL (32.0-36.0); MEAN CORPUSCULAR VOLUME 106 fl (80-97); RED BLOOD COUNT 3.05 10^6/uL (4.35-5.55); RED CELL DISTRIBUTION WIDTH 18.6 % (11.5-14.0); WHITE BLOOD COUNT 6.8 10^3/uL (4.0-10.5)
--- NOTE | 2017-03-15 05:42 | PDOC H&P ---
History of Present Illness Admission Date/PCP: 03/14/17 23:36 Patient complains of: Vomiting dark material History of Present Illness: JUAN CONSTANTINO is a 52 year old male with a past medical history of severe alcoholism , COPD with chronic bronchitis, tobacco, recreational and pharmaceutical drug abuse. He was in his usual state of health until approximately 12 hours prior to presentation having an episode of abdominal discomfort followed by nausea and coffee-ground emesis 2. He considered alcohol cessation and presented to [facility] for detox and referred to the emergency room given this history. In the emergency room he is found to be intoxicated and is an extremely poor historian. His Hemoccult stool is positive a CBC reflects a drop of hemoglobin of two-point 2:05 liters of normal saline and started on IV Protonix and is referred to the hospitalist for admission. Patient's mental status waxing and waning with delirium and subsequently IVC paperwork is initiated. He has had no further episodes of emesis. Past Medical History Pulmonary Medical History: Reports: Bronchitis, Chronic Obstructive Pulmonary Disease (COPD) Psychiatric Medical History: Reports: Alcohol Dependency, Substance Abuse, Tobacco Dependency Past Surgical History Past Surgical History: Reports: Herniorrhaphy Social History Information Source: Patient Lives with: Friend Smoking Status: Current Every Day Smoker Frequency of Alcohol Use: Heavy Hx Recreational Drug Use: No Hx Prescription Drug Abuse: Yes - Advance Directive Resuscitation Status: Full Code Family History Family History: COPD Parental Family History Reviewed: Yes Children Family History Reviewed: Yes Sibling(s) Family History Reviewed.: Yes Medication/Allergy Home Medications: No Home Medications 03/05/17 Allergies/Adverse Reactions: No Known Allergies Allergy (Verified 03/05/17 15:39) Review of Systems ROS unobtainable: Due to mental status Physical Exam Vital Signs: Temp Pulse Resp BP Pulse Ox 97.2 F 62 20 126/75 H 99 03/15/17 03:55 03/15/17 03:55 03/15/17 05:00 03/15/17 04:30 03/15/17 05:00 General appearance: PRESENT: disheveled, mild distress, thin Head exam: PRESENT: atraumatic, normocephalic Eye exam: PRESENT: conjunctiva pink, EOMI, PERRLA. ABSENT: scleral icterus Ear exam: PRESENT: normal external ear exam Mouth exam: PRESENT: moist, tongue midline Neck exam: ABSENT: carotid bruit, JVD, lymphadenopathy, thyromegaly Respiratory exam: PRESENT: crackles, prolonged expiratory phas, tachypnea. ABSENT: rales, rhonchi, wheezes Cardiovascular exam: PRESENT: RRR. ABSENT: diastolic murmur, rubs, systolic murmur Pulses: PRESENT: normal dorsalis pedis pul Vascular exam: PRESENT: normal capillary refill GI/Abdominal exam: PRESENT: hyperactive bowel sounds, normal bowel sounds, soft , tenderness - Epigastric tenderness without guarding. ABSENT: distended, guarding, mass, organolmegaly, rebound Rectal exam: PRESENT: deferred Extremities exam: PRESENT: full ROM. ABSENT: calf tenderness, clubbing, pedal edema Neurological exam: PRESENT: alert, altered, awake, oriented to person, CN II- XII grossly intact. ABSENT: oriented to place, oriented to time, oriented to situation, motor sensory deficit Psychiatric exam: PRESENT: agitated Skin exam: PRESENT: dry, intact, warm. ABSENT: cyanosis, rash Results Laboratory Results: 03/14/17 23:50 03/14/17 23:50 WBC 5.5 RBC 3.20 L Hgb 12.0 L D Hct 33.8 L MCV 106 H MCH 37.5 H MCHC 35.5 RDW 18.6 H Plt Count 124 L Assessment & Plan - Diagnosis (1) Upper GI bleed Is this a current diagnosis for this admission?: Yes Plan: Most likely alcoholic gastritis, admission to a monitored bed evaluate PT/INR, CBC every 6 hours, type and screen. Continue IV Protonix gastroenterology consult. (2) Alcohol abuse Is this a current diagnosis for this admission?: Yes Plan: Patient considering alcohol cessation, discharge planning consulted. Thiamine, folate and Ativan ordered (3) Alcohol withdrawal delirium Is this a current diagnosis for this admission?: Yes Plan: Thiamine folate and Ativan ordered (4) Coagulopathy Is this a current diagnosis for this admission?: Yes Plan: Secondary to alcoholism, vitamin K ordered. (5) Hypernatremia Is this a current diagnosis for this admission?: Yes Plan: With acidosis likely secondary to starvation or alcohol, D5 half-normal saline with potassium ordered, follow-up chemistry. - Time Time Spent: 50 to 70 Minutes - Inpatient Certification Medical Necessity: Need Close Monitoring Due to Risk of Patient Decompensation
[2017-03-15] MEDS: LORAZEPAM INJ 2 MG/1 ML VIAL IV SCH ×4 (05:43→23:52)
[2017-03-15 06:01] LABS: ALANINE AMINOTRANSFERASE 38 U/L (21-72); ALBUMIN 2.6 g/dL (3.5-5.0); ALKALINE PHOSPHATASE 60 U/L (38-126); ANION GAP 9 (5-19); ASPARTATE AMINO TRANSFERASE 46 U/L (17-59); BILIRUBIN,DIRECT 0.3 mg/dL (0.0-0.4); BILIRUBIN,TOTAL 1.3 mg/dL (0.2-1.3); BLOOD UREA NITROGEN 9 mg/dL (7-20); CARBON DIOXIDE 29 mmol/L (22-30); CHLORIDE 109 mmol/L (98-107); CREATININE RESULT 0.49 mg/dL (0.52-1.25); GLUCOSE 67 mg/dL (75-110); SODIUM 147.3 mmol/L (137-145); TOTAL PROTEIN 4.4 g/dL (6.3-8.2)
[2017-03-15 06:11] LABS: POTASSIUM 2.9 mmol/L (3.6-5.0)
[2017-03-15] MEDS: POTASSI CL 20 MEQ/D5-1/2NS 1L 1,000 ML IV SCH ×2 (06:36→12:51)
[2017-03-15] MEDS ORDERED: POTASSIUM CHLORIDE 20 MEQ/50 ML RTU IV ONE (07:00)
--- NOTE | 2017-03-15 08:12 | EKG REPORT ---
SEVERITY:- NORMAL ECG - SINUS RHYTHM : Confirmed by: Kunal Sepulveda MD 15-Mar-2017 08:11:35
[2017-03-15] MEDS: IPRATROPIUM/ALBUTEROL 0.5-2.5 MG/3 ML AMPUL NEB SCH ×2 (08:13→20:04)
[2017-03-15] MEDS: THIAMINE HCL 100 MG, FOLIC ACID 1 MG in NORMAL SALINE 250 ML IV SCH (11:21)
--- NOTE | 2017-03-15 11:32 | PDOC CONSULTATION ---
Consultation Consult Date: 03/15/17 Attending physician:: LEONCIO BRITO Consult reason:: Asked to see patient for possible upper GI bleeding History of Present Illness Admission Date/PCP: 03/14/17 23:36 History of Present Illness: Patient is admitted by the hospitalist service overnight after presenting to the emergency room with a possible upper GI bleed. Patient does have a history of significant alcohol use. Overall a poor historian. Labs do show a stable hemoglobin for right now. Patient denies any significant nausea or vomiting. He has been started on a PPI drip. His labs are being corrected. Do note a slight drop of his hemoglobin after fluid hydration but that could just be due to hemodilution. patient states had epigastric pain with some coffee ground emesis ? if may need EGD variceal bleeding would be more prominant and would be accompanied by hemodynamic instability patient may be in early DT's if EGD is to proceed, would need Propofol sedation agree with admission, transfuse as necessary Past Medical History Pulmonary Medical History: Reports: Bronchitis, Chronic Obstructive Pulmonary Disease (COPD) Psychiatric Medical History: Reports: Alcohol Dependency, Substance Abuse, Tobacco Dependency Past Surgical History Past Surgical History: Reports: Herniorrhaphy Social History Lives with: Friend Smoking Status: Current Every Day Smoker Frequency of Alcohol Use: Heavy Hx Recreational Drug Use: No Hx Prescription Drug Abuse: Yes - Advance Directive Resuscitation Status: Full Code Family History Family History: COPD Parental Family History Reviewed: Yes Children Family History Reviewed: Unknown Sibling(s) Family History Reviewed.: Unknown Medication/Allergy Home Medications: No Home Medications 03/15/17 Allergies/Adverse Reactions: No Known Allergies Allergy (Verified 03/05/17 15:39) Review of Systems Constitutional: ABSENT: fever(s), headache(s) Eyes: ABSENT: visual disturbances Ears: ABSENT: hearing changes Nose, Mouth, and Throat: ABSENT: mouth pain, sore throat Cardiovascular: ABSENT: chest pain, orthropnea Respiratory: ABSENT: dyspnea, hemoptysis Gastrointestinal: PRESENT: coffee ground emesis, vomiting. ABSENT: diarrhea, dysphagia Genitourinary: ABSENT: dysuria, hematuria Musculoskeletal: PRESENT: muscle weakness Neurological: PRESENT: tingling. ABSENT: syncope, tremor(s), vertigo Psychiatric: ABSENT: hallucinations Endocrine: ABSENT: polydipsia, polyphagia, polyuria Hematologic/Lymphatic: ABSENT: easy bruising Physical Exam Vital Signs: Temp Pulse Resp BP Pulse Ox 97.8 F 71 16 122/77 95 03/15/17 05:59 03/15/17 08:13 03/15/17 08:13 03/15/17 07:00 03/15/17 07:01 Intake & Output 03/14/17 03/15/17 03/16/17 06:59 06:59 06:59 Intake Total 1000 Balance 1000 General appearance: PRESENT: mild distress Head exam: PRESENT: atraumatic, normocephalic Eye exam: PRESENT: EOMI. ABSENT: nystagmus, periorbital swelling, PERRLA Mouth exam: PRESENT: moist Throat exam: ABSENT: tonsillar exudate, tonsillogmegaly Neck exam: ABSENT: meningismus, tenderness, thyromegaly Respiratory exam: PRESENT: symmetrical, tachypnea. ABSENT: unlabored, wheezes Cardiovascular exam: PRESENT: RRR, +S1, +S2 GI/Abdominal exam: PRESENT: soft. ABSENT: rebound, rigid, tenderness Extremities exam: ABSENT: joint swelling Musculoskeletal exam: PRESENT: full ROM Neurological exam: PRESENT: oriented to time, oriented to situation, CN II-XII grossly intact Skin exam: PRESENT: normal color. ABSENT: mottled, pallor, petechiae, urticaria , vesicles Results Laboratory Results: 03/15/17 05:29 03/15/17 05:29 03/14/17 03/15/17 03/15/17 23:50 05:29 05:29 WBC 5.5 6.8 RBC 3.20 L 3.05 L Hgb 12.0 L D 11.4 L Hct 33.8 L 32.3 L MCV 106 H 106 H MCH 37.5 H 37.3 H MCHC 35.5 35.3 RDW 18.6 H 18.6 H Plt Count 124 L 103 L Sodium 147.3 H Potassium 2.9 L* Chloride 109 H Carbon Dioxide 29 Anion Gap 9 BUN 9 Creatinine 0.49 L Est GFR ( Amer) > 60 Est GFR (Non-Af Amer) > 60 Glucose 67 L Calcium 7.0 L* Total Bilirubin 1.3 AST 46 ALT 38 Alkaline Phosphatase 60 Total Protein 4.4 L Albumin 2.6 L Assessment & Plan - Diagnosis (1) Alcohol withdrawal delirium Is this a current diagnosis for this admission?: Yes Plan: conservative management check phosphorus level as well Thiamine, fluids etc (2) Upper GI bleed Is this a current diagnosis for this admission?: Yes Plan: will plan for possible EGD based on his presentation, likely has more either ulcer or gastritis he would be more hemodynamically unstable if it were to be variceal in nature Risks, benefits and alternatives are discussed he will tico Propofol sedation since may be in DT's and has a previous history of narcotic dependance spoke with Dr Zhong - Time Time Spent: 50 to 70 Minutes
[2017-03-15 12:13] LABS: HEMATOCRIT 31.8 % (37.9-51.0); HEMOGLOBIN 11.1 g/dL (13.5-17.0); HGB HCT DIFFERENCE 1.5; MEAN CORPUSCULAR HEMOGLOBIN 37.3 pg (27.0-33.4); MEAN CORPUSCULAR VOLUME 106 fl (80-97); RED BLOOD COUNT 2.99 10^6/uL (4.35-5.55); RED CELL DISTRIBUTION WIDTH 18.5 % (11.5-14.0); WHITE BLOOD COUNT 8.3 10^3/uL (4.0-10.5)
--- NOTE | 2017-03-15 14:44 | PDOC PROGRESS REPORT ---
Subjective Progress Note for:: 03/15/17 Subjective:: Complains of some epigastric pain. Physical Exam Vital Signs: Temp Pulse Resp BP Pulse Ox 98.8 F 104 H 18 131/82 H 98 03/15/17 13:53 03/15/17 13:55 03/15/17 13:53 03/15/17 13:53 03/15/17 13:53 Intake & Output 03/14/17 03/15/17 03/16/17 06:59 06:59 06:59 Intake Total 1000 Balance 1000 Weight 56.4 kg General appearance: PRESENT: no acute distress Eye exam: PRESENT: conjunctiva pink. ABSENT: scleral icterus Mouth exam: PRESENT: moist, tongue midline Neck exam: ABSENT: JVD Respiratory exam: PRESENT: clear to auscultation donnie. ABSENT: rales, rhonchi, wheezes Cardiovascular exam: PRESENT: RRR. ABSENT: diastolic murmur, rubs, systolic murmur GI/Abdominal exam: PRESENT: normal bowel sounds, soft. ABSENT: distended, guarding, mass, organolmegaly, rebound, tenderness Extremities exam: ABSENT: calf tenderness, clubbing, pedal edema Neurological exam: PRESENT: alert, awake, oriented to person, oriented to place , oriented to time, oriented to situation, CN II-XII grossly intact. ABSENT: motor sensory deficit Psychiatric exam: PRESENT: appropriate affect Skin exam: PRESENT: dry, intact, warm. ABSENT: cyanosis, rash Results Laboratory Results: 03/15/17 11:51 03/15/17 05:29 03/14/17 03/15/17 03/15/17 23:50 05:29 05:29 WBC 5.5 6.8 RBC 3.20 L 3.05 L Hgb 12.0 L D 11.4 L Hct 33.8 L 32.3 L MCV 106 H 106 H MCH 37.5 H 37.3 H MCHC 35.5 35.3 RDW 18.6 H 18.6 H Plt Count 124 L 103 L Sodium 147.3 H Potassium 2.9 L* Chloride 109 H Carbon Dioxide 29 Anion Gap 9 BUN 9 Creatinine 0.49 L Est GFR ( Amer) > 60 Est GFR (Non-Af Amer) > 60 Glucose 67 L Calcium 7.0 L* Total Bilirubin 1.3 AST 46 ALT 38 Alkaline Phosphatase 60 Total Protein 4.4 L Albumin 2.6 L 03/15/17 11:51 WBC 8.3 RBC 2.99 L Hgb 11.1 L Hct 31.8 L MCV 106 H MCH 37.3 H MCHC 35.0 RDW 18.5 H Plt Count 96 L Sodium Potassium Chloride Carbon Dioxide Anion Gap BUN Creatinine Est GFR ( Amer) Est GFR (Non-Af Amer) Glucose Calcium Total Bilirubin AST ALT Alkaline Phosphatase Total Protein Albumin Assessment & Plan - Diagnosis (1) Upper GI bleed Is this a current diagnosis for this admission?: Yes Plan: The patient has been evaluated by GI. He most likely has a gastric source for the bleeding. He has no previous history of variceal bleed (2) Alcohol abuse Is this a current diagnosis for this admission?: Yes Plan: Patient is getting Ativan as needed. (3) Alcohol withdrawal delirium Is this a current diagnosis for this admission?: Yes Plan: Patient is getting Ativan as needed. At the time of my exam the patient is alert and oriented 3. (4) Hypernatremia Is this a current diagnosis for this admission?: Yes Plan: Most likely related to the alcohol abuse. - Time Time Spent with patient: 15-24 minutes - Inpatient Certification Medical Necessity: Need Close Monitoring Due to Risk of Patient Decompensation
[2017-03-15] MEDS ORDERED: INFLUENZA ADLT QUAD (36MOS+) 2017-18 VAC 0.5 ML SYR IM PRN (15:52)
[2017-03-15] MEDS ORDERED: DEXTROSE 50%-WATER 25 GM/50 ML DISP.SYRIN IV PRN ×2 (16:12)
[2017-03-15] MEDS ORDERED: DEXTROSE 40% GEL 15 GM TUBE PO PRN ×2 (16:12)
[2017-03-15] MEDS ORDERED: GLUCAGON,HUMAN RECOMB 1 MG INJ SUBCUT PRN (16:12)
[2017-03-15] MEDS ORDERED: PANTOPRAZOLE SODIUM 40 MG VIAL IV ONE (16:30)
[2017-03-15] MEDS: METOPROLOL TARTRATE 25 MG TABLET PO SCH (17:37)
[2017-03-15 18:01] LABS: HEMATOCRIT 33.6 % (37.9-51.0); HEMOGLOBIN 11.6 g/dL (13.5-17.0); HGB HCT DIFFERENCE 1.2; MEAN CORPUSCULAR HEMOGLOBIN 36.6 pg (27.0-33.4); MEAN CORPUSCULAR HGB CONC 34.6 g/dL (32.0-36.0); MEAN CORPUSCULAR VOLUME 106 fl (80-97); RED BLOOD COUNT 3.18 10^6/uL (4.35-5.55); RED CELL DISTRIBUTION WIDTH 18.3 % (11.5-14.0); WHITE BLOOD COUNT 9.9 10^3/uL (4.0-10.5)
[2017-03-15] MEDS ORDERED: DILTIAZEM HCL INJ 25 MG/5 ML VIAL ONE (18:13)
[2017-03-15] MEDS ORDERED: DILTIAZEM HCL/D5W 125 MG/125 ML RTUINJ IV ONE (18:13)
[2017-03-15] MEDS ORDERED: DILTIAZEM HCL/D5W 125 MG/125 ML RTUINJ IV PRN (18:15)
[2017-03-15 23:30] LABS: HEMATOCRIT 33.4 % (37.9-51.0); HEMOGLOBIN 11.6 g/dL (13.5-17.0); HGB HCT DIFFERENCE 1.4; MEAN CORPUSCULAR HEMOGLOBIN 36.8 pg (27.0-33.4); MEAN CORPUSCULAR HGB CONC 34.8 g/dL (32.0-36.0); MEAN CORPUSCULAR VOLUME 106 fl (80-97); RED BLOOD COUNT 3.17 10^6/uL (4.35-5.55); RED CELL DISTRIBUTION WIDTH 18.3 % (11.5-14.0); WHITE BLOOD COUNT 9.8 10^3/uL (4.0-10.5)
[2017-03-15] MEDS: NICOTINE 14 MG/24 HR PATCH.TD24 TD SCH (23:51)
[2017-03-16] MEDS: LORAZEPAM INJ 2 MG/1 ML VIAL IV SCH ×4 (05:15→23:52)
[2017-03-16] MEDS: METOPROLOL TARTRATE 25 MG TABLET PO SCH ×2 (05:15→18:38)
[2017-03-16 06:13] LABS: HEMATOCRIT 35.1 % (37.9-51.0); HEMOGLOBIN 12.4 g/dL (13.5-17.0); HGB HCT DIFFERENCE 2.1; MEAN CORPUSCULAR HEMOGLOBIN 37.4 pg (27.0-33.4); MEAN CORPUSCULAR HGB CONC 35.2 g/dL (32.0-36.0); MEAN CORPUSCULAR VOLUME 106 fl (80-97); RED CELL DISTRIBUTION WIDTH 17.9 % (11.5-14.0); WHITE BLOOD COUNT 10.4 10^3/uL (4.0-10.5)
[2017-03-16] MEDS ORDERED: DILTIAZEM HCL 30 MG TABLET ONE (08:01)
[2017-03-16] MEDS: IPRATROPIUM/ALBUTEROL 0.5-2.5 MG/3 ML AMPUL NEB SCH ×2 (08:24→20:36)
[2017-03-16] MEDS: DILTIAZEM HCL 30 MG TABLET PO SCH ×3 (08:37→22:10)
[2017-03-16] MEDS: THIAMINE HCL 100 MG, FOLIC ACID 1 MG in NORMAL SALINE 250 ML IV SCH (09:02)
--- NOTE | 2017-03-16 09:55 | PDOC PROGRESS REPORT ---
Subjective Progress Note for:: 03/16/17 Subjective:: Complains of some epigastric pain. Physical Exam Vital Signs: Temp Pulse Resp BP Pulse Ox 98.7 F 97 20 113/74 96 03/16/17 07:35 03/16/17 09:00 03/16/17 08:24 03/16/17 09:00 03/16/17 08:24 Intake & Output 03/15/17 03/16/17 03/17/17 06:59 06:59 06:59 Intake Total 1000 1100 Output Total 0 Balance 1000 1100 Weight 57.8 kg General appearance: PRESENT: no acute distress Eye exam: PRESENT: conjunctiva pink. ABSENT: scleral icterus Mouth exam: PRESENT: moist, tongue midline Respiratory exam: ABSENT: rales, rhonchi, wheezes Cardiovascular exam: PRESENT: RRR. ABSENT: diastolic murmur, rubs, systolic murmur GI/Abdominal exam: PRESENT: normal bowel sounds, soft. ABSENT: distended, guarding, mass, organolmegaly, rebound, tenderness Extremities exam: ABSENT: calf tenderness, clubbing, pedal edema Neurological exam: PRESENT: alert, awake, oriented to person, oriented to place , oriented to time, oriented to situation, CN II-XII grossly intact. ABSENT: motor sensory deficit Psychiatric exam: PRESENT: flat affect Skin exam: PRESENT: dry, intact, warm. ABSENT: cyanosis, rash Results Laboratory Results: 03/16/17 05:15 03/16/17 05:15 03/15/17 03/15/17 03/15/17 11:51 16:25 17:26 WBC 8.3 9.9 RBC 2.99 L 3.18 L Hgb 11.1 L 11.6 L Hct 31.8 L 33.6 L MCV 106 H 106 H MCH 37.3 H 36.6 H MCHC 35.0 34.6 RDW 18.5 H 18.3 H Plt Count 96 L 95 L Potassium 3.3 L 03/15/17 03/16/17 03/16/17 23:16 05:15 05:15 WBC 9.8 10.4 RBC 3.17 L 3.30 L Hgb 11.6 L 12.4 L Hct 33.4 L 35.1 L MCV 106 H 106 H MCH 36.8 H 37.4 H MCHC 34.8 35.2 RDW 18.3 H 17.9 H Plt Count 92 L 99 L Potassium 3.1 L Assessment & Plan - Diagnosis (1) Upper GI bleed Is this a current diagnosis for this admission?: Yes Plan: The patient has been evaluated by GI. He most likely has a gastric source for the bleeding. Patient is to get an EGD today. (2) Alcohol abuse Is this a current diagnosis for this admission?: Yes Plan: Patient is getting Ativan as needed. (3) Alcohol withdrawal delirium Is this a current diagnosis for this admission?: Yes Plan: Patient is getting Ativan as needed. At the time of my exam the patient is alert and oriented 3. (4) Hypernatremia Is this a current diagnosis for this admission?: Yes Plan: Most likely related to the alcohol abuse. (5) Hypokalemia Is this a current diagnosis for this admission?: Yes Plan: We will get potassium supplementation and follow. - Time Time Spent with patient: 25-34 minutes - Inpatient Certification Medical Necessity: Need Close Monitoring Due to Risk of Patient Decompensation
[2017-03-16] MEDS ORDERED: MIDAZOLAM 2 MG/2 ML INJ ONE (12:42)
[2017-03-16] MEDS ORDERED: PROPOFOL INJ 200 MG/20 ML VIAL IV ONE (12:43)
[2017-03-16] MEDS ORDERED: ONDANSETRON HCL INJ/PF 4 MG/2 ML SDV IV PRN (13:06)
[2017-03-16] MEDS ORDERED: DIPHENHYDRAMINE HCL 50 MG/ML VIAL IV PRN (13:06)
[2017-03-16] MEDS ORDERED: PROMETHAZINE HCL INJ 25 MG/1 ML VIAL IV PRN ×2 (13:06)
--- NOTE | 2017-03-16 14:00 | Operative Report ---
Operative Report DATE OF SURGERY: 03/16/17 Operative Report: The risks benefits and alternatives of the procedure explained to the patient in detail and informed consent is obtained.A GIF Olympus video scope was inserted into the patient's mouth and hypopharynx, the esophagus is identified intubated and insufflated, the scope was then advanced through the esophagus stomach and duodenum, retroflexion maneuver is done ,the esophagus stomach and first and second portions of the duodenum examined PREOPERATIVE DIAGNOSIS: GI bleed rule out varices POSTOPERATIVE DIAGNOSIS: Gastritis status post biopsy rule out Helicobacter pylori. No further bleeding noted OPERATION: EGD with biopsy SURGEON: LEONCIO BRITO ANESTHESIA: LMAC TISSUE REMOVED OR ALTERED: As noted above. COMPLICATIONS: None. ESTIMATED BLOOD LOSS: None. INTRAOPERATIVE FINDINGS: As described above. PROCEDURE: Patient tolerated the procedure well. No immediate postprocedure complications are noted. Patient sent back to his room in good condition. Resume previous diet advance as tolerated Resume previous activity level Follow H&H Transfuse as necessary Can see as outpatient
[2017-03-16] MEDS: POTASSIUM CHLORIDE 10 MEQ TABLET.SA PO SCH ×2 (14:12→22:06)
--- NOTE | 2017-03-16 16:27 | Physician Advisory Note ---
Physician Advisor ProgressNote .: Pursuant to the plan for [facility], I have reviewed the medical record for this patient. Physician Advisor Statement: Please consider documentin. "Anemia of acute blood loss due to acute GI Bleed from gastritis" Thanks! CK
[2017-03-16] MEDS ORDERED: PANTOPRAZOLE SODIUM 40 MG VIAL IV SCH (18:00)
[2017-03-16] MEDS: IPRATROPIUM/ALBUTEROL 0.5-2.5 MG/3 ML AMPUL NEB PRN ×2 (20:00→20:36)
[2017-03-16] MEDS: NICOTINE 14 MG/24 HR PATCH.TD24 TD SCH (22:06)
[2017-03-17 05:32] LABS: ABSOLUTE BASOPHILS # (AUTO) 0.1 10^3/uL (0.0-0.2); ABSOLUTE EOSINOPHILS # (AUTO) 0.3 10^3/uL (0.0-0.6); ABSOLUTE LYMPHOCYTES (AUTO) 2.5 10^3/uL (0.5-4.7); ABSOLUTE MONOCYTES (AUTO) 0.7 10^3/uL (0.1-1.4); ABSOLUTE NEUT (AUTO) 6.9 10^3/uL (1.7-8.2); BASOPHILS % (AUTO) 0.5 % (0-2); EOSINOPHILS % (AUTO) 2.9 % (0-6); HEMATOCRIT 33.8 % (37.9-51.0); HEMOGLOBIN 11.9 g/dL (13.5-17.0); HGB HCT DIFFERENCE 1.9; LYMPHOCYTES % (AUTO) 24.2 % (13-45); MEAN CORPUSCULAR HEMOGLOBIN 37.4 pg (27.0-33.4); MEAN CORPUSCULAR HGB CONC 35.3 g/dL (32.0-36.0); MEAN CORPUSCULAR VOLUME 106 fl (80-97); MONOCYTES % (AUTO) 6.9 % (3-13); RED BLOOD COUNT 3.19 10^6/uL (4.35-5.55); SEGMENTED NEUTROPHILS % (AUTO) 65.5 % (42-78); WHITE BLOOD COUNT 10.5 10^3/uL (4.0-10.5)
[2017-03-17 05:41] LABS: ANION GAP 9 (5-19); BLOOD UREA NITROGEN 3 mg/dL (7-20); CALCIUM 8.6 mg/dL (8.4-10.2); CARBON DIOXIDE 27 mmol/L (22-30); CHLORIDE 106 mmol/L (98-107); CREATININE RESULT 0.43 mg/dL (0.52-1.25); GLUCOSE 83 mg/dL (75-110); MAGNESIUM 1.5 mg/dL (1.6-2.3); POTASSIUM 3.1 mmol/L (3.6-5.0); SODIUM 141.9 mmol/L (137-145)
[2017-03-17] MEDS: DILTIAZEM HCL 30 MG TABLET PO SCH ×2 (06:21→09:05)
[2017-03-17] MEDS: METOPROLOL TARTRATE 25 MG TABLET PO SCH (06:22)
[2017-03-17] MEDS: LORAZEPAM INJ 2 MG/1 ML VIAL IV SCH (06:22)
[2017-03-17] MEDS: IPRATROPIUM/ALBUTEROL 0.5-2.5 MG/3 ML AMPUL NEB SCH (08:16)
[2017-03-17] MEDS ORDERED: MAGNESIUM SULFATE 4 GM/100 ML RTUPB IV ONE (09:00)
[2017-03-17] MEDS ORDERED: POTASSI CL 20 MEQ/50 ML RIDER 20 MEQ/50 ML RTUPB IV SCH (09:00)
[2017-03-17 09:05] VITALS: BP 134/76
[2017-03-17] MEDS: THIAMINE HCL 100 MG, FOLIC ACID 1 MG in NORMAL SALINE 250 ML IV SCH (09:05)
[2017-03-17] MEDS ORDERED: POTASSIUM CHLORIDE 10 MEQ TABLET.SA PO SCH (10:00)
--- NOTE | 2017-03-17 11:50 | PDOC DISCHARGE SUMMARY ---
General - Admit/Disc Date/PCP Admission Date/Primary Care Provider: 03/14/17 23:36 Discharge Date: 03/17/17 - Discharge Diagnosis (1) Upper GI bleed Is this a current diagnosis for this admission?: Yes Summary: Secondary to gastritis. Patient also had anemia secondary to acute blood loss secondary to the GI bleed. (2) Alcohol abuse Is this a current diagnosis for this admission?: Yes (3) Alcohol withdrawal delirium Is this a current diagnosis for this admission?: Yes Summary: Resolved. (4) Hypernatremia Is this a current diagnosis for this admission?: Yes (5) Hypokalemia Is this a current diagnosis for this admission?: Yes (6) Atrial fibrillation Is this a current diagnosis for this admission?: Yes Summary: Patient was initially put on IV Cardizem but then transitioned over to p.o. Cardizem. (7) Hypomagnesemia Is this a current diagnosis for this admission?: Yes (8) Left against medical advice Is this a current diagnosis for this admission?: Yes Summary: Patient was competent to make this decision. He had no evidence for delirium tremens or any kind of mental impairment. - Additional Information Resuscitation Status: Full Code Home Medications: No Home Medications 03/15/17 History of Present Illness History of Present Illness: JUAN CONSTANTINO is a 52 year old male who presented with GI bleed and alcohol withdrawal. Hospital Course Hospital Course: 52-year-old man who was admitted with a GI bleed. Patient also had alcohol abuse. The patient's hemoglobin decreased but did not require transfusion. He was evaluated by GI who did an upper endoscopy and found gastritis but no active bleeding. The patient had been treated with benzodiazepines for his delirium tremens. He was alert and oriented on the day that he left AGAINST MEDICAL ADVICE. I felt he needed correction of his electrolyte abnormalities prior to leaving however his delirium tremens had resolved and he was alert and oriented and competent to make this decision. He also had atrial fibrillation during this hospitalization but left without taking any prescriptions for cardiac medications. Physical Exam Vital Signs: Temp Pulse Resp BP Pulse Ox 98.3 F 70 16 134/76 H 98 03/17/17 07:38 03/17/17 08:16 03/17/17 08:16 03/17/17 07:38 03/17/17 08:16 Intake & Output 03/16/17 03/17/1717 06:59 06:59 06:59 Intake Total 1100 1463 Output Total 0 200 Balance 1100 1263 Weight 57.8 kg 55.1 kg General appearance: PRESENT: no acute distress Eye exam: PRESENT: conjunctiva pink. ABSENT: scleral icterus Mouth exam: PRESENT: moist, tongue midline Neck exam: ABSENT: JVD Respiratory exam: PRESENT: clear to auscultation donnie. ABSENT: rales, rhonchi, wheezes Cardiovascular exam: PRESENT: RRR. ABSENT: diastolic murmur, rubs, systolic murmur GI/Abdominal exam: PRESENT: normal bowel sounds, soft. ABSENT: distended, guarding, mass, organolmegaly, rebound, tenderness Extremities exam: ABSENT: calf tenderness, clubbing, pedal edema Neurological exam: PRESENT: alert, awake, oriented to person, oriented to place , oriented to time, oriented to situation, CN II-XII grossly intact. ABSENT: motor sensory deficit Psychiatric exam: PRESENT: appropriate affect Skin exam: PRESENT: dry, intact, warm. ABSENT: cyanosis, rash Results Laboratory Results: 03/17/17 04:48 03/17/17 04:48 03/17/17 03/17/17 04:48 04:48 WBC 10.5 RBC 3.19 L Hgb 11.9 L Hct 33.8 L MCV 106 H MCH 37.4 H MCHC 35.3 RDW 18.0 H Plt Count 95 L Seg Neutrophils % 65.5 Lymphocytes % 24.2 Monocytes % 6.9 Eosinophils % 2.9 Basophils % 0.5 Absolute Neutrophils 6.9 Absolute Lymphocytes 2.5 Absolute Monocytes 0.7 Absolute Eosinophils 0.3 Absolute Basophils 0.1 Sodium 141.9 Potassium 3.1 L Chloride 106 Carbon Dioxide 27 Anion Gap 9 BUN 3 L Creatinine 0.43 L Est GFR ( Amer) > 60 Est GFR (Non-Af Amer) > 60 Glucose 83 Calcium 8.6 Magnesium 1.5 L Qualifiers [place] BEING DISCHARGED WITH ANY OF THE FOLLOWING DIAGNOSIS?: No Plan Discharge Plan: Patient left AGAINST MEDICAL ADVICE Time Spent: Less than 30 Minutes
== END 2017-03-17 10:30 | disposition left against medical advice (07) | DRG 378 ==
LOC: ER 16:24 → EH 23:36 → UNDOADMIN 23:40 → EH 23:40 → 3W 03-15 13:39
PROVIDERS: ADMIT Internal Medicine; ATTEND Internal Medicine
PROC: 0DB68ZX Excision of Stomach, Via Natural or Artificial Opening Endoscopic, Diagnostic (ICD-10-PCS; principal; 2017-03-16 12:30)
DX: K29.21 Alcoholic gastritis with bleeding (principal); F10.231 Alcohol dependence with withdrawal delirium; D62 Acute posthemorrhagic anemia; E87.0 Hyperosmolality and hypernatremia; F10.221 Alcohol dependence with intoxication delirium; D68.8 Other specified coagulation defects; Y90.8 Blood alcohol level of 240 mg/100 ml or more; E87.6 Hypokalemia; I48.91 Unspecified atrial fibrillation; E83.42 Hypomagnesemia; J44.9 Chronic obstructive pulmonary disease, unspecified; F11.10 Opioid abuse, uncomplicated; F17.200 Nicotine dependence, unspecified, uncomplicated; Z83.6 Family history of other diseases of the respiratory system
CPT/HCPCS: 36415; 43239; 740; 80048; 80053; 80307; 81001; 82272; 83690; 83735; 84132; 85025; 85027; 85610; 85730; 86850; 86900; 86901; 88305; 88342; 93005; 93010; 96361; 96374; 96375; 99285; J1644; J2060; J2250; J2405; J2704; J3411; J3430; J3475; J3480; J3490; J7030; J7050; J7620; S0164

== ENCOUNTER 2017-03-17 19:10 | Emergency (ER) | payer SELFPAY ==
[2017-03-17 21:29] LABS: ABSOLUTE BASOPHILS # (AUTO) 0.1 10^3/uL (0.0-0.2); ABSOLUTE EOSINOPHILS # (AUTO) 0.2 10^3/uL (0.0-0.6); ABSOLUTE LYMPHOCYTES (AUTO) 2.6 10^3/uL (0.5-4.7); ABSOLUTE MONOCYTES (AUTO) 0.8 10^3/uL (0.1-1.4); ABSOLUTE NEUT (AUTO) 6.6 10^3/uL (1.7-8.2); BASOPHILS % (AUTO) 0.6 % (0-2); HEMOGLOBIN 13.8 g/dL (13.5-17.0); HGB HCT DIFFERENCE 2.4; MEAN CORPUSCULAR HEMOGLOBIN 37.8 pg (27.0-33.4); MEAN CORPUSCULAR HGB CONC 35.5 g/dL (32.0-36.0); MEAN CORPUSCULAR VOLUME 107 fl (80-97); MONOCYTES % (AUTO) 7.8 % (3-13); RED BLOOD COUNT 3.66 10^6/uL (4.35-5.55); RED CELL DISTRIBUTION WIDTH 17.9 % (11.5-14.0); SEGMENTED NEUTROPHILS % (AUTO) 64.6 % (42-78); WHITE BLOOD COUNT 10.3 10^3/uL (4.0-10.5)
[2017-03-17 21:41] LABS: ALANINE AMINOTRANSFERASE 31 U/L (21-72); ALCOHOL 173 mg/dL (NONE DETECTED); ALKALINE PHOSPHATASE 87 U/L (38-126); ANION GAP 11 (5-19); ASPARTATE AMINO TRANSFERASE 33 U/L (17-59); BILIRUBIN,DIRECT 0.5 mg/dL (0.0-0.4); BILIRUBIN,TOTAL 1.1 mg/dL (0.2-1.3); BLOOD UREA NITROGEN 3 mg/dL (7-20); CALCIUM 9.3 mg/dL (8.4-10.2); CARBON DIOXIDE 31 mmol/L (22-30); CHLORIDE 102 mmol/L (98-107); CREATININE RESULT 0.51 mg/dL (0.52-1.25); GLUCOSE 104 mg/dL (75-110); POTASSIUM 3.8 mmol/L (3.6-5.0); SODIUM 144.3 mmol/L (137-145); TOTAL PROTEIN 6.7 g/dL (6.3-8.2)
[2017-03-17 21:47] LABS: APPEARANCE,URINE CLEAR; BILIRUBIN,URINE NEGATIVE (NEGATIVE); GLUCOSE, URINE NEGATIVE (NEGATIVE); KETONES,URINE NEGATIVE (NEGATIVE); LEUKOCYTE ESTERASE,URINE NEGATIVE (NEGATIVE); NITRITE,URINE NEGATIVE (NEGATIVE); PROTEIN,URINE NEGATIVE (NEGATIVE); URINE SPECIFIC GRAVITY 1.004; UROBILINOGEN,URINE NEGATIVE mg/dL (<2.0)
[2017-03-17] MEDS ORDERED: LORAZEPAM 1 MG TABLET PO ONE (21:55)
--- NOTE | 2017-03-17 21:59 | ER Document Report ---
ED Substance Abuse / Acc. OD - General Chief Complaint: Medical Clearance Stated Complaint: DETOX Time Seen by Provider: 03/17/17 21:27 Mode of Arrival: Ambulatory Information source: Patient TRAVEL OUTSIDE OF THE [place] IN LAST 30 DAYS: No - HPI Patient complains to provider of: Alcohol abuse Onset/Duration: Persistent Quality of pain: No pain Associated Symptoms: None Similar symptoms previously: Yes Recently seen / treated by doctor: Yes Notes: Patient is a 52-year-old male presenting to the emergency room today requesting medical clearance to enter detox/rehab for alcohol abuse, patient was recently admitted to this emergency room for electrolyte abnormalities associated with alcohol abuse and signs and symptoms of alcohol withdrawal, unfortunately he signed out AGAINST MEDICAL ADVICE sometime this morning, he has been in touch with [facility] and is attempting to get placed in detox for assistance with alcohol abuse, however they have advised him to come back to the emergency room for medical clearance prior to entering such a program, he denies any complaints at present time - Related Data Allergies/Adverse Reactions: No Known Allergies Allergy (Verified 03/05/17 15:39) Past Medical History - General Information source: Patient - Social History Smoking Status: Current Every Day Smoker Chew tobacco use (# tins/day): No Frequency of alcohol use: Heavy Drug Abuse: Marijuana, Prescription drugs Family History: COPD Patient has suicidal ideation: No Patient has homicidal ideation: Yes Pulmonary Medical History: Reports: Hx Bronchitis, Hx COPD Renal/ Medical History: Denies: Hx Peritoneal Dialysis GI Medical History: Reports: Hx Ulcer Past Surgical History: Reports: Hx Abdominal Surgery - HERNIA, Hx Herniorrhaphy - Immunizations Hx Diphtheria, Pertussis, Tetanus Vaccination: Yes Review of Systems - Review of Systems Constitutional: No symptoms reported EENT: No symptoms reported Cardiovascular: No symptoms reported Respiratory: No symptoms reported Gastrointestinal: No symptoms reported Genitourinary: No symptoms reported Male Genitourinary: No symptoms reported Musculoskeletal: No symptoms reported Skin: No symptoms reported Hematologic/Lymphatic: No symptoms reported Neurological/Psychological: No symptoms reported -: Yes All other systems reviewed and negative Physical Exam - Vital signs Vitals: Temp Pulse Resp BP Pulse Ox 98.3 F 117 H 18 116/85 98 03/17/17 19:22 03/17/17 19:22 03/17/17 19:22 03/17/17 19:22 03/17/17 19:22 Interpretation: Normal - General General appearance: Alert In distress: None - HEENT Head: Normocephalic, Atraumatic Eyes: Normal Conjunctiva: Normal Extraocular movements intact: Yes Eyelashes: Normal Pupils: PERRL - Respiratory Respiratory status: No respiratory distress Chest status: Nontender Breath sounds: Normal Chest palpation: Normal - Cardiovascular Rhythm: Regular Heart sounds: Normal auscultation Murmur: No - Abdominal Inspection: Other - Large hyperpigmented reticulated subcutaneous mass in the right lower quadrant of the abdomen which patient reports is chronic and has been there for many years Distension: No distension Bowel sounds: Normal Tenderness: Nontender Organomegaly: No organomegaly - Back Back: Normal, Nontender - Extremities General upper extremity: Normal inspection, Nontender, Normal color, Normal ROM , Normal temperature General lower extremity: Normal inspection, Nontender, Normal color, Normal ROM , Normal temperature, Normal weight bearing. No: [place]'s sign - Neurological Neuro grossly intact: Yes Cognition: Normal Orientation: AAOx4 Mia Coma Scale Eye Opening: Spontaneous Mia Coma Scale Verbal: Oriented Mia Coma Scale Motor: Obeys Commands [place] Coma Scale Total: 15 Speech: Normal Motor strength normal: LUE, RUE, LLE, RLE Sensory: Normal - Psychological Associated symptoms: Normal affect, Normal mood - Skin Skin Temperature: Warm Skin Moisture: Dry Skin Color: Normal Course - Re-evaluation Re-evalutation: 03/17/17 22:52 Patient was given a dose of Ativan in the emergency room, and a prescription for Librium, he was advised to follow-up with [facility] for further assistance with placement in detox/rehab, or return if symptoms worsen, patient acknowledges understanding and agreement with this plan - Vital Signs Vital signs: Temp Pulse Resp BP Pulse Ox 98.4 F 99 20 121/80 98 03/17/17 22:15 03/17/17 22:15 03/17/17 22:15 03/17/17 22:15 03/17/17 22:15 - Laboratory Result Diagrams: 03/17/17 21:05 03/17/17 21:05 Laboratory results interpreted by me: 03/17/17 03/17/17 21:05 21:05 RBC 3.66 L MCV 107 H MCH 37.8 H RDW 17.9 H Plt Count 128 L Carbon Dioxide 31 H BUN 3 L Creatinine 0.51 L Direct Bilirubin 0.5 H Salicylates < 1.0 L Acetaminophen < 10 L Discharge - Discharge Clinical Impression: Alcohol abuse Condition: Stable Disposition: HOME, SELF-CARE Instructions: Acute Alcohol Intoxication ([facility]), Alcohol Withdrawl ([facility]), Chronic Alcoholism ([facility]) Additional Instructions: Follow-up with substance abuse treatment services to obtain assistance with detox and rehab. Follow-up with your primary care provider in 1-2 days. Return to the emergency room immediately if symptoms worsen or any additional concerns. Your evaluation in the emergency room today did not reveal any emergent or urgent conditions requiring immediate medical treatment or hospitalization. Prescriptions: Chlordiazepoxide HCl [Librium 25 mg Capsule] 50 mg PO Q4 PRN #30 capsule PRN Reason:
[2017-03-17 22:01] LABS: URINE BARBITURATES SCREEN NEGATIVE; URINE METHADONE SCREEN NEGATIVE; URINE OPIATES LOW NEGATIVE; URINE PHENCYCLIDINE SCREEN NEGATIVE
[2017-03-17 22:23] VITALS: BP 121/80
--- NOTE | 2017-03-18 07:52 | EKG REPORT ---
SEVERITY:- OTHERWISE NORMAL ECG - SINUS TACHYCARDIA : Confirmed by: Kunal Sepulveda MD 18-Mar-2017 07:52:32
== END 2017-03-17 22:18 | disposition home or self-care (01) ==
LOC: ER 19:10
DX: F10.10 Alcohol abuse, uncomplicated (principal); F17.200 Nicotine dependence, unspecified, uncomplicated; J44.9 Chronic obstructive pulmonary disease, unspecified
CPT/HCPCS: 36415; 80053; 80307; 81001; 85025; 93005; 93010; 99283

== ENCOUNTER 2017-04-22 13:55 | Emergency (ER) | payer SELFPAY ==
--- NOTE | 2017-04-22 14:26 | ER Document Report ---
ED Fall - General Chief Complaint: Rib Pain Stated Complaint: Chest Pain Time Seen by Provider: 04/22/17 14:15 Notes: Patient says he missed a step couple of days ago and fell all the way down the steps. He says he was knocked out. Says he had a swollen scalp, but no longer there. He is complaining of pain in both shoulders, both sides of the chest and ribs, both legs and says he is unable to walk because they are numb, although they have feeling to touch, etc.. Patient denies any neck pain and has chronic back pain that is no different than usual. He says he is coughing a lot and coughing so hard that he is throwing up. Smokes a pack of cigarettes a day and looks like he smokes even more. Denies actual fever but has had chills and sweats. Patient did not come to the emergency department sooner because he did not have a ride. He called EMS for transport today. Patient is complaining of some pains in the anterior chest. PMH: Patient says he has bipolar disorder but on no medicines. Chronic back pain that is no different than usual today. Patient says he smokes a pack of cigarettes a day and drinks a couple of drinks of alcohol daily. He says he does not drink heavily, but looking back on his previous visits, he was here for detox as well as for withdrawal symptoms during this calendar year, thus far. TRAVEL OUTSIDE OF THE [place] IN LAST 30 DAYS: No - Related data Allergies/Adverse Reactions: No Known Allergies Allergy (Verified 03/05/17 15:39) Past Medical History - Social History Smoking Status: Current Every Day Smoker Family History: Reviewed & Not Pertinent, COPD Pulmonary Medical History: Reports: Hx Bronchitis, Hx COPD GI Medical History: Reports: Hx Ulcer Psychiatric Medical History: Reports: Hx Bipolar Disorder Past Surgical History: Reports: Hx Abdominal Surgery - HERNIA, Hx Herniorrhaphy - Immunizations Hx Diphtheria, Pertussis, Tetanus Vaccination: Yes Review of Systems - Review of Systems Notes: REVIEW OF SYSTEMS: CONSTITUTIONAL : Denies fever but has had sweats and cold chills. EENT: Denies eye, ear, nose or mouth or throat pain or other symptoms. CARDIOVASCULAR: Has had chest pain and pain in both of his shoulders as well as the ribs bilaterally. RESPIRATORY: Has a cough and some chest congestion and shortness of breath. GASTROINTESTINAL: Denies abdominal pain or nausea, vomiting, or diarrhea. GENITOURINARY: Denies difficulty or painful urinating, urinary frequency, blood in urine. MUSCULOSKELETAL: Denies back or neck pain. Denies joint pain or swelling. SKIN: Denies rash or skin lesions. NEUROLOGICAL: Says he had loss of consciousness when he fell 2 days ago, but does not have any current altered mental status. Denies headache. Denies sensory loss or motor deficits. ALL OTHER SYSTEMS REVIEWED AND NEGATIVE. Physical Exam - Vital signs Vitals: Pulse Ox 96 04/22/17 14:09 Interpretation: Normal - Notes Notes: PHYSICAL EXAMINATION: GENERAL: in no acute distress. Looks older than stated age. HEAD: Atraumatic, normocephalic. No cranial or scalp hematomas found. EYES: Pupils equal round and reactive to light, extraocular movements intact. ENT: oropharynx clear without exudates. Moist mucous membranes. NECK: Normal range of motion, supple. LUNGS: Breath sounds clear and equal bilaterally. No significant localized rib tenderness. HEART: Regular rate and rhythm without murmurs. ABDOMEN: Soft, nontender. No guarding or rebound. BACK: No tenderness throughout entire back. EXTREMITIES: Normal range of motion without pain. Excellent dorsalis pedis pulses bilaterally. Patient can stand and walk in the room and turn around without assistance. Fever warm and pink. NEUROLOGICAL: Normal speech, normal gait. Normal sensory, motor, and reflex exams. Awake, alert, and oriented x3. Cranial nerves normal. PSYCH: Normal mood, normal affect. Anxious. SKIN: Warm, dry, no rashes. Course - Re-evaluation Re-evalutation: 04/22/17 19:25 Patient's labs were all essentially unremarkable with exception of a blood alcohol of 232. Patient says he had not had that much to drink, only about 2 drinks so he could not possibly have a blood alcohol that high. I told him he needed to do something about his drinking. He asked for medications to help with the withdrawal. I offered him a prescription for Vistaril which she was willing to accept. - Vital Signs Vital signs: Temp Pulse Resp BP Pulse Ox 18 120/88 H 96 04/22/17 16:41 04/22/17 16:41 04/22/17 16:41 - Laboratory Result Diagrams: 04/22/17 14:30 04/22/17 14:30 Laboratory results interpreted by me: 04/22/17 04/22/17 04/22/17 14:30 14:30 15:29 RBC 3.98 L MCV 107 H MCH 37.3 H RDW 17.5 H Plt Count 135 L Potassium 3.5 L Chloride 97 L BUN 5 L AST 161 H Alkaline Phosphatase 193 H Urine Protein 30 H Urine Urobilinogen 4.0 H - Diagnostic Test Radiology reviewed: Image reviewed, Reports reviewed - CT head was negative. Radiology results interpreted by me: 04/22/17 16:48 Chest x-ray is normal. Perhaps some evidence of COPD. Nothing acute. - EKG Interpretation by Me EKG shows normal: Sinus rhythm Rate: Normal Rhythm: NSR Additional EKG results interpreted by me: 04/22/17 14:40 EKG is normal. Discharge - Discharge Clinical Impression: Contusion, multiple sites, Alcohol abuse, Alcohol intoxication Condition: Stable Disposition: HOME, SELF-CARE Additional Instructions: ACUTE ALCOHOL INTOXICATION and ALCOHOL ABUSE: Your evaluation revealed very high levels of alcohol. You can from drinking a large amount of alcohol rapidly! Further, there's the risk of falls , traffic accidents, and fights. A high portion (about 50 percent) of the serious injuries seen in hospital emergency rooms are caused by alcohol. Alcohol overdosage is usually due to an underlying emotional or psychiatric problem. You may benefit from counselling. If "binge" drinking is an ongoing problem for you, or if you drink ANY AMOUNT of alcohol EVERY day, you most likely have a tendency to alcoholism. You should avoid alcohol totally. We can refer you for treatment. Persons with alcohol problems are often also prone to other addictions -- you should discuss any use of medications or drugs with the doctor. You should be watched at home for the next several hours by someone who has not been drinking. Get extra fluids for the next 24 hours. Call the doctor if there is repeated vomiting, increasing headache, decreasing level of alertness, or any other worsening. CHRONIC ALCOHOLISM and ALCOHOL ABUSE: Your evaluation reveals evidence of chronic alcoholism, an addiction to alcohol. The tendency to alcoholism may be inherited. Chronic use of alcohol weakens muscles, causes fatty deposits in the liver , damages the stomach, makes you more prone to infections, and can cause defects in unborn children. In the long run, brain atrophy and cirrhosis of the liver result. You are also at greater risk for certain types of cancer, such as cancer of the mouth, throat, stomach, and liver. Counselling services are available to help you. In-hospital treatment programs often help. Support groups such as Alcoholics Anonymous can be very useful in beating this addiction. Your physician can make a referral for you. As alcoholics often are prone to other addictions, you should discuss your use of any other medications with the doctor. USE OF ACETAMINOPHEN (Tylenol): Acetaminophen may be taken for pain relief or fever control. It's much safer than aspirin, offering a wider range of "safe" dosages. It is safe during . Some brand names are Tylenol, Panadol, Datril, Anacin 3, Tempra, and Liquiprin. Acetaminophen can be repeated every four hours. The following are maximum recommended dosages: WEIGHT Dose Drops Elixir Chewable( 80mg) (LBS.) drprs=droppers tsp=teaspoon >89 pounds or adults 650 mg to 900 mg Acetaminophen can be repeated every four hours. Maximum dose not to exceed 4000 mg a day. These maximum recommended dosages are slightly higher than the dosages written on the product container, but these dosages are very safe and below the toxic dosage for acetaminophen. FOLLOW-UP CARE: If you have been referred to a physician for follow-up care, call the physician s office for an appointment as you were instructed or within the next two days. If you experience worsening or a significant change in your symptoms, notify the physician immediately or return to the Emergency Department at any time for re-evaluation. Prescriptions: Hydroxyzine HCl 25 - 50 mg PO QIDP PRN #30 tablet PRN Reason:
[2017-04-22 15:14] LABS: ABSOLUTE BASOPHILS # (AUTO) 0.1 10^3/uL (0.0-0.2); ABSOLUTE EOSINOPHILS # (AUTO) 0.1 10^3/uL (0.0-0.6); ABSOLUTE LYMPHOCYTES (AUTO) 1.7 10^3/uL (0.5-4.7); ABSOLUTE MONOCYTES (AUTO) 0.7 10^3/uL (0.1-1.4); ABSOLUTE NEUT (AUTO) 5.3 10^3/uL (1.7-8.2); BASOPHILS % (AUTO) 1.3 % (0-2); EOSINOPHILS % (AUTO) 1.2 % (0-6); HEMATOCRIT 42.7 % (37.9-51.0); HEMOGLOBIN 14.9 g/dL (13.5-17.0); LYMPHOCYTES % (AUTO) 21.6 % (13-45); MEAN CORPUSCULAR HEMOGLOBIN 37.3 pg (27.0-33.4); MEAN CORPUSCULAR HGB CONC 34.8 g/dL (32.0-36.0); MEAN CORPUSCULAR VOLUME 107 fl (80-97); MONOCYTES % (AUTO) 8.5 % (3-13); RED BLOOD COUNT 3.98 10^6/uL (4.35-5.55); RED CELL DISTRIBUTION WIDTH 17.5 % (11.5-14.0); SEGMENTED NEUTROPHILS % (AUTO) 67.4 % (42-78); WHITE BLOOD COUNT 7.9 10^3/uL (4.0-10.5)
--- NOTE | 2017-04-22 15:22 | RADIOLOGY REPORT (SQ) ---
EXAM DESCRIPTION: CT HEAD WITHOUT COMPLETED DATE/TIME: 04/22/2017 2:59 pm REASON FOR STUDY: Fell 2 days ago and knocked out COMPARISON: July 2016 TECHNIQUE: Axial images acquired through the brain without intravenous contrast. Images reviewed wi th bone, brain and subdural windows. Images stored on PACS. All CT scanners at this facility use dose modulation, iterative reconstruction, and/or weight based d osing when appropriate to reduce radiation dose to as low as reasonably achievable (ALARA). [facility]: Dose Right [facility]: CareDose [facility]: Dose Right [facility]: Teradose 4D [facility]: Smart [email or web address] RADIATION DOSE: Up-to-date CT equipment and radiation dose reduction techniques were employed. CTDIv ol: 64.6 mGy. DLP: 1034 mGy-cm. mGy. LIMITATIONS: None. FINDINGS: VENTRICLES: Normal size and contour. CEREBRUM: No masses. No hemorrhage. No midline shift. No evidence for acute infarction. Normal gra y/white matter differentiation. No areas of low density in the white matter. CEREBELLUM: No masses. No hemorrhage. No alteration of density. No evidence for acute infarction. EXTRAAXIAL SPACES: No fluid collections. No masses. ORBITS AND GLOBE: No intra- or extraconal masses. Normal contour of globe without masses. CALVARIUM: No fracture. PARANASAL SINUSES: No fluid or mucosal thickening. SOFT TISSUES: No mass or hematoma. OTHER: No other significant finding. IMPRESSION: NORMAL BRAIN CT WITHOUT CONTRAST. EVIDENCE OF ACUTE STROKE: NO. COMMENT: Quality ID # [id number]: Final reports with documentation of one or more dose reduction techniques (e.g., Automated exposure control, adjustment of the mA and/or kV according to patient size, use of iterative reconstruction technique) TECHNICAL DOCUMENTATION: JOB ID: [id number] [employer]- All Rights Reserved
[2017-04-22 15:33] LABS: ALANINE AMINOTRANSFERASE 55 U/L (21-72); ALBUMIN 3.9 g/dL (3.5-5.0); ALCOHOL 232 mg/dL (NONE DETECTED); ALKALINE PHOSPHATASE 193 U/L (38-126); ANION GAP 17 (5-19); ASPARTATE AMINO TRANSFERASE 161 U/L (17-59); BILIRUBIN,DIRECT 0.3 mg/dL (0.0-0.4); BILIRUBIN,TOTAL 0.7 mg/dL (0.2-1.3); BLOOD UREA NITROGEN 5 mg/dL (7-20); CALCIUM 8.7 mg/dL (8.4-10.2); CARBON DIOXIDE 29 mmol/L (22-30); CHLORIDE 97 mmol/L (98-107); CREATININE RESULT 0.57 mg/dL (0.52-1.25); GLUCOSE 86 mg/dL (75-110); LIPASE 247.6 U/L (23-300); POTASSIUM 3.5 mmol/L (3.6-5.0); SODIUM 142.8 mmol/L (137-145); TOTAL PROTEIN 6.5 g/dL (6.3-8.2)
[2017-04-22 15:42] LABS: CREATINE KINASE MB 0.51 ng/mL (<4.55)
[2017-04-22 15:44] LABS: TROPONIN I < 0.012 ng/mL
--- NOTE | 2017-04-22 15:46 | EKG REPORT ---
SEVERITY:- NORMAL ECG - SINUS RHYTHM : Confirmed by: Alana Bueno 22-Apr-2017 15:46:15
--- NOTE | 2017-04-22 15:52 | RADIOLOGY REPORT (SQ) ---
EXAM DESCRIPTION: CHEST PA/LAT COMPLETED DATE/TIME: 04/22/2017 3:09 pm REASON FOR STUDY: Fall with rib pain COMPARISON: January 2016 EXAM PARAMETERS: NUMBER OF VIEWS: two views TECHNIQUE: Digital Frontal and Lateral radiographic views of the chest acquired. RADIATION DOSE: NA LIMITATIONS: none FINDINGS: LUNGS AND PLEURA: No opacities, masses or pneumothorax. No pleural effusion. MEDIASTINUM AND HILAR STRUCTURES: No masses or contour abnormalities. HEART AND VASCULAR STRUCTURES: Heart normal size. No evidence for failure. BONES: No acute findings. HARDWARE: None in the chest. OTHER: No other significant finding. IMPRESSION: NO SIGNIFICANT RADIOGRAPHIC FINDING IN THE CHEST. TECHNICAL DOCUMENTATION: JOB ID: [id number] [employer]- All Rights Reserved
[2017-04-22 16:06] LABS: APPEARANCE,URINE SLIGHTLY-CLOUDY; BILIRUBIN,URINE NEGATIVE (NEGATIVE); GLUCOSE, URINE NEGATIVE (NEGATIVE); KETONES,URINE NEGATIVE (NEGATIVE); LEUKOCYTE ESTERASE,URINE NEGATIVE (NEGATIVE); NITRITE,URINE NEGATIVE (NEGATIVE); PROTEIN,URINE 30 mg/dL (NEGATIVE); URINE SPECIFIC GRAVITY 1.012
[2017-04-22 16:37] LABS: URINE BARBITURATES SCREEN UNCONFIRMED POSITIVE; URINE METHADONE SCREEN NEGATIVE; URINE OPIATES LOW NEGATIVE; URINE PHENCYCLIDINE SCREEN NEGATIVE
[2017-04-22 16:51] VITALS: BP 120/88
== END 2017-04-22 17:15 | disposition home or self-care (01) ==
LOC: ER 13:55
DX: T14.8XXA Other injury of unspecified body region, initial encounter (principal); F10.920 Alcohol use, unspecified with intoxication, uncomplicated; R07.81 Pleurodynia; R07.9 Chest pain, unspecified; M54.9 Dorsalgia, unspecified; G89.29 Other chronic pain; F17.200 Nicotine dependence, unspecified, uncomplicated; W10.9XXA Fall (on) (from) unspecified stairs and steps, initial encounter
CPT/HCPCS: 36415; 70450; 71020; 80053; 80307; 81001; 82553; 83690; 84484; 85025; 93005; 93010; 99284

== ENCOUNTER 2017-04-24 03:22 | Emergency (ER) | payer SELFPAY ==
[2017-04-24] MEDS ORDERED: ONDANSETRON HCL INJ/PF 4 MG/2 ML SDV IV ONE (04:37)
[2017-04-24 07:00] LABS: ABSOLUTE BASOPHILS # (AUTO) 0.1 10^3/uL (0.0-0.2); ABSOLUTE LYMPHOCYTES (AUTO) 1.3 10^3/uL (0.5-4.7); ABSOLUTE MONOCYTES (AUTO) 0.4 10^3/uL (0.1-1.4); ABSOLUTE NEUT (AUTO) 2.4 10^3/uL (1.7-8.2); BASOPHILS % (AUTO) 1.4 % (0-2); EOSINOPHILS % (AUTO) 1.1 % (0-6); HEMATOCRIT 44.1 % (37.9-51.0); HEMOGLOBIN 15.3 g/dL (13.5-17.0); HGB HCT DIFFERENCE 1.8; LYMPHOCYTES % (AUTO) 31.2 % (13-45); MEAN CORPUSCULAR HEMOGLOBIN 36.8 pg (27.0-33.4); MEAN CORPUSCULAR HGB CONC 34.8 g/dL (32.0-36.0); MEAN CORPUSCULAR VOLUME 106 fl (80-97); MONOCYTES % (AUTO) 8.9 % (3-13); RED BLOOD COUNT 4.17 10^6/uL (4.35-5.55); SEGMENTED NEUTROPHILS % (AUTO) 57.4 % (42-78); WHITE BLOOD COUNT 4.2 10^3/uL (4.0-10.5)
[2017-04-24] MEDS ORDERED: LORAZEPAM 0.5 MG TABLET PO ONE (07:25)
--- NOTE | 2017-04-24 07:30 | ER Document Report ---
ED General - General Chief Complaint: Nausea/Vomiting Stated Complaint: VOMITING Time Seen by Provider: 04/24/17 06:06 Mode of Arrival: Ambulatory Information source: Patient Notes: 52-year-old chronic alcoholic presents for medical clearance. Patient noted to be disoriented by psych intermittently over the past 2 weeks. Patient himself denies any specific confusion, he admits to left upper quadrant abdominal pain. Patient has had a history of pancreatitis TRAVEL OUTSIDE OF THE [place] IN LAST 30 DAYS: No - HPI Onset: Just prior to arrival Onset/Duration: Sudden Quality of pain: No pain Severity: Mild Pain Level: Denies Associated symptoms: Weakness Exacerbated by: Denies Relieved by: Denies Similar symptoms previously: Yes Recently seen / treated by doctor: Yes - Related Data Allergies/Adverse Reactions: No Known Allergies Allergy (Verified 03/05/17 15:39) Past Medical History - Social History Smoking Status: Current Every Day Smoker Cigarette use (# per day): Yes Chew tobacco use (# tins/day): No Smoking Education Provided: No Frequency of alcohol use: Rare Drug Abuse: None Family History: Reviewed & Not Pertinent, COPD Patient has suicidal ideation: No Patient has homicidal ideation: No Pulmonary Medical History: Reports: Hx Bronchitis, Hx COPD Renal/ Medical History: Denies: Hx Peritoneal Dialysis GI Medical History: Reports: Hx Ulcer Psychiatric Medical History: Reports: Hx Bipolar Disorder Past Surgical History: Reports: Hx Abdominal Surgery - HERNIA, Hx Herniorrhaphy - Immunizations Hx Diphtheria, Pertussis, Tetanus Vaccination: Yes Review of Systems - Review of Systems Notes: REVIEW OF SYSTEMS: CONSTITUTIONAL : Denies fever, chills, or sweats. Denies recent illness. EENT: Denies eye, ear, throat, or mouth pain or symptoms. Denies nasal or sinus congestion or discharge. Denies throat, tongue, or mouth swelling or difficulty swallowing. CARDIOVASCULAR: Denies chest pain. Denies palpitations or racing or irregular heart beat. Denies ankle edema. RESPIRATORY: Denies cough, cold, or chest congestion. Denies shortness of breath, difficulty breathing, or wheezing. GASTROINTESTINAL: Denies abdominal pain or distention. Denies nausea, vomiting , or diarrhea. Denies blood in vomitus, stools, or per rectum. Denies black, tarry stools. Denies constipation. GENITOURINARY: Denies difficulty urinating, painful urination, burning, frequency, blood in urine, or discharge. MUSCULOSKELETAL: Denies back or neck pain or stiffness. Denies joint pain or swelling. SKIN: Denies rash, lesions or sores. HEMATOLOGIC : Denies easy bruising or bleeding. LYMPHATIC: Denies swollen, enlarged glands. NEUROLOGICAL: Confusion noted by caregiver PSYCHIATRIC: Denies anxiety or stress. Denies depression, suicidal ideation, or homicidal ideation. ALL OTHER SYSTEMS REVIEWED AND NEGATIVE. Dictation was performed using [employer] voice recognition software PHYSICAL EXAMINATION: GENERAL: Thin appearing male HEAD: Atraumatic, normocephalic. EYES: Pupils equal round and reactive to light, extraocular movements intact, sclera anicteric, conjunctiva are normal. ENT: Nares patent, oropharynx clear without exudates. Moist mucous membranes. NECK: Normal range of motion, supple without lymphadenopathy LUNGS: Breath sounds clear to auscultation bilaterally and equal. No wheezes rales or rhonchi. HEART: Regular rate and rhythm without murmurs ABDOMEN: Soft, nontender, nondistended abdomen. No guarding, no rebound. No masses appreciated. Musculoskeletal: Normal range of motion, no pitting or edema. No cyanosis. NEUROLOGICAL: Patient's finger to nose heel to [place] were mildly inappropriate, patient otherwise alert oriented 4, is able to follow commands PSYCH: Normal mood, normal affect. SKIN: Warm, Dry, normal turgor, no rashes or lesions noted. Physical Exam - Vital signs Vitals: Temp Pulse BP Pulse Ox 98.2 F 107 H 139/84 H 94 04/24/17 03:43 04/24/17 03:43 04/24/17 03:43 04/24/17 03:43 Course - Re-evaluation Re-evalutation: 04/24/17 07:34 I have extremely low suspicion for any life-threatening concerns at this time, I believe there is a large component of alcohol abuse that has caused the patient's intermittent confusion episodes 04/24/17 16:56 Patient believes he is withdrawing yet his alcohol level is 274 and he has no signs of actual withdrawal here. He is otherwise medically cleared to go to [facility] to have actual detox performed - Vital Signs Vital signs: Temp Pulse Resp BP Pulse Ox 98.1 F 107 H 14 128/88 H 98 04/24/17 09:48 04/24/17 09:48 04/24/17 09:48 04/24/17 09:48 04/24/17 09:48 - Laboratory Result Diagrams: 04/24/17 06:45 04/24/17 06:45 Laboratory results interpreted by me: 04/24/17 04/24/17 06:45 06:45 RBC 4.17 L MCV 106 H MCH 36.8 H RDW 18.0 H Plt Count 120 L Potassium 3.4 L Chloride 95 L Carbon Dioxide 31 H BUN 4 L AST 158 H Alkaline Phosphatase 170 H Discharge - Discharge Clinical Impression: Wernickes encephalopathy, Alcohol abuse Condition: Stable Disposition: HOME, SELF-CARE Additional Instructions: Follow up with your physician tomorrow for further care or return to the ED IMMEDIATELY if symptoms worsen or new concerns occur. If you cannot afford to follow up with your primary care physician a list of low cost clinics have been provided at the end of your discharge papers as well.
[2017-04-24 07:45] LABS: ALANINE AMINOTRANSFERASE 64 U/L (21-72); ALBUMIN 3.8 g/dL (3.5-5.0); ALKALINE PHOSPHATASE 170 U/L (38-126); ANION GAP 15 (5-19); ASPARTATE AMINO TRANSFERASE 158 U/L (17-59); BILIRUBIN,DIRECT 0.4 mg/dL (0.0-0.4); BILIRUBIN,TOTAL 0.7 mg/dL (0.2-1.3); BLOOD UREA NITROGEN 4 mg/dL (7-20); CALCIUM 8.4 mg/dL (8.4-10.2); CARBON DIOXIDE 31 mmol/L (22-30); CHLORIDE 95 mmol/L (98-107); CREATININE RESULT 0.54 mg/dL (0.52-1.25); GLUCOSE 84 mg/dL (75-110); POTASSIUM 3.4 mmol/L (3.6-5.0); SODIUM 141.2 mmol/L (137-145); TOTAL PROTEIN 6.5 g/dL (6.3-8.2)
[2017-04-24 08:11] LABS: LIPASE 264.7 U/L (23-300)
[2017-04-24 08:16] LABS: APPEARANCE,URINE CLEAR; BILIRUBIN,URINE NEGATIVE (NEGATIVE); GLUCOSE, URINE NEGATIVE (NEGATIVE); KETONES,URINE NEGATIVE (NEGATIVE); LEUKOCYTE ESTERASE,URINE NEGATIVE (NEGATIVE); NITRITE,URINE NEGATIVE (NEGATIVE); PROTEIN,URINE NEGATIVE (NEGATIVE); URINE SPECIFIC GRAVITY 1.002; UROBILINOGEN,URINE NEGATIVE mg/dL (<2.0)
[2017-04-24 09:50] VITALS: BP 128/88
== END 2017-04-24 09:50 | disposition home or self-care (01) ==
LOC: ER 03:22
DX: E51.2 Wernicke's encephalopathy (principal); F10.10 Alcohol abuse, uncomplicated; R11.2 Nausea with vomiting, unspecified
CPT/HCPCS: 99283; 96374; 36415; 80307; 83690; 85025; 80053; 81001; J2405

== ENCOUNTER 2017-05-08 12:43 | Emergency (ER) | payer SELFPAY ==
[2017-05-08] MEDS ORDERED: NORMAL SALINE 1000 ML 1,000 ML IV ONE (13:08)
--- NOTE | 2017-05-08 13:42 | ER Document Report ---
ED General - General Chief Complaint: Blurred Vision Stated Complaint: BLURRY VISION Time Seen by Provider: 05/08/17 12:54 Information source: Patient Notes: Patient came here after calling the [facility] secondary to wanting some help with his alcohol abuse. Patient states he has a long history of alcohol abuse. When I asked him about the blurry vision, he states he has had that for over 6 months. He states last time he was in group home they told him that he needed eyeglasses and to follow-up with an sharepoint consultant. Patient has yet to do this. When I ask about pain, the patient states he has some chronic intermittent epigastric and left chest pain that he has had greater than 2 years. He states it is not exertional. He denies any nausea, vomiting, fevers, shortness of breath, calf pain or leg swelling. Patient denies any overt suicidal ideations. He does state he is depressed because he has trouble drinking. TRAVEL OUTSIDE OF THE [place] IN LAST 30 DAYS: No - HPI Onset: Other - See above Onset/Duration: Gradual Quality of pain: Achy Severity: Mild Pain Level: Denies Associated symptoms: Other - See above Exacerbated by: Denies Relieved by: Denies Similar symptoms previously: Yes Recently seen / treated by doctor: No - Related Data Allergies/Adverse Reactions: No Known Allergies Allergy (Verified 03/05/17 15:39) Past Medical History - General Information source: Patient - Social History Smoking Status: Unknown if Ever Smoked Cigarette use (# per day): No Chew tobacco use (# tins/day): No Frequency of alcohol use: Heavy Drug Abuse: None Family History: Reviewed & Not Pertinent, COPD Pulmonary Medical History: Reports: Hx Bronchitis, Hx COPD Renal/ Medical History: Denies: Hx Peritoneal Dialysis GI Medical History: Reports: Hx Ulcer Psychiatric Medical History: Reports: Hx Bipolar Disorder Past Surgical History: Reports: Hx Abdominal Surgery - HERNIA, Hx Herniorrhaphy - Immunizations Hx Diphtheria, Pertussis, Tetanus Vaccination: Yes Review of Systems - Review of Systems Constitutional: denies: Fever EENT: denies: Eye discharge, Tearing, Double vision, Ear discharge, Nose pain, Nose discharge, Throat pain Cardiovascular: denies: Palpitations, Syncope, Dizziness, Lightheaded Respiratory: denies: Short of breath Gastrointestinal: denies: Diarrhea, Vomiting Genitourinary: denies: Dysuria Musculoskeletal: denies: Leg swelling Skin: Other - no hives. denies: Rash Neurological/Psychological: Other - no slurred speech -: Yes All other systems reviewed and negative Physical Exam - Vital signs Vitals: Resp Pulse Ox 17 97 05/08/17 12:51 05/08/17 12:51 Notes: Reviewed vital signs and nursing note as charted by RN. CONSTITUTIONAL: Alert and oriented and responds appropriately to questions. Well -appearing; well-nourished HEAD: Normocephalic; atraumatic EYES: PERRL; full extraocular range of motion ENT: Normal nose; no rhinorrhea; dry mucous membranes; pharynx without lesions noted NECK: Supple without meningismus; non-tender; no cervical lymphadenopathy, no masses CARD: Regular rate and rhythm; no murmurs, no clicks, no rubs, no gallops; symmetric distal pulses RESP: Normal chest excursion without splinting or tachypnea; breath sounds clear and equal bilaterally ABD/GI: Normal bowel sounds; non-distended; soft, non-tender, no rebound, no guarding; no palpable organomegaly or masses BACK: The back appears normal and is non-tender to palpation, there is no CVA tenderness EXT: Normal ROM in all joints; non-tender to palpation; no cyanosis, no effusions, no edema SKIN: Normal color for age and race; warm; dry; good turgor; capillary refill < 2 seconds; no acute lesions noted NEURO: CN II through XII are intact. Patient has 5 out of 5 bilateral upper and lower extremity strength and sensation intact to light touch. Normal cerebellar examination. No nystagmus on visual exam. Patient is able to count fingers appropriately. Patient denies any pain to his eyes PSYCH: The patient's mood and manner are appropriate. Grooming and personal hygiene are appropriate. Course - Re-evaluation Re-evalutation: Given the history and physical examination we will order a psychology consult. I will also order basic labs, psychiatric profile labs, EKG, and troponin. Patient currently has no focal neurological deficits. His pupils are equal and reactive bilaterally. Cranial nerves II through XII are intact. Patient is able to count fingers appropriately in both eyes. He denies any pain to his eyes. Patient has no weakness or numbness. Patient states he was told to follow-up with an air traffic instructor secondary to some poor vision and the requirement for prescription eyewear. Given the above history and physical examination I do not believe any CT imaging or further evaluation of his eye complaint is necessary at this time. Patient does admit to drinking "one beer" today. Patient smells strongly of alcohol. 05/08/17 13:42 EKG shows a heart rate of 94, normal sinus rhythm, normal axis, no obvious ST elevation or depression. Flattening T-wave in aVL. Old EKG shows no obvious appreciable change. 05/08/17 15:22 Labs and blood alcohol as recorded. Patient is oriented 4 at this time. Currently denies any chest pain. Liver panel, lipase, and troponin as recorded. Patient currently denies any abdominal pain at this time. Patient has not vomited. Patient states he has a history of chronic pancreatitis. 05/08/17 15:55 Patient supposedly has an accepted bed at the [facility]. He states that they need him to sober up. This is supposedly a psychological facility that has medical capabilities and is able to provide Ativan. They state that we will hold the patient overnight, [facility] coordinate with [facility] to transport the patient to the hospital. - Vital Signs Vital signs: Temp Pulse Resp BP Pulse Ox 97.6 F 11 L 138/94 H 96 05/08/17 12:54 05/08/17 12:52 05/08/17 12:52 05/08/17 12:52 - Laboratory Result Diagrams: 05/08/17 13:22 05/08/17 13:22 Laboratory results interpreted by me: 05/08/17 05/08/17 13:22 13:22 RBC 3.72 L MCV 106 H MCH 37.0 H RDW 16.3 H Sodium 145.3 H BUN 5 L Creatinine 0.50 L Glucose 74 L Direct Bilirubin 0.6 H AST 92 H Lipase 397.5 H Salicylates < 1.0 L Acetaminophen < 10 L Serum Alcohol 402 H* Discharge - Discharge Clinical Impression: Alcohol abuse Condition: Fair Additional Instructions: Please return the patient back immediately with any pain, fevers, vomiting, or any other worrisome conditions.
[2017-05-08 14:03] LABS: HEMATOCRIT 39.5 % (37.9-51.0); HEMOGLOBIN 13.8 g/dL (13.5-17.0); HGB HCT DIFFERENCE 1.9; MEAN CORPUSCULAR HGB CONC 34.8 g/dL (32.0-36.0); MEAN CORPUSCULAR VOLUME 106 fl (80-97); RED BLOOD COUNT 3.72 10^6/uL (4.35-5.55); RED CELL DISTRIBUTION WIDTH 16.3 % (11.5-14.0); WHITE BLOOD COUNT 7.2 10^3/uL (4.0-10.5)
[2017-05-08 14:21] LABS: ALANINE AMINOTRANSFERASE 61 U/L (21-72); ALBUMIN 4.2 g/dL (3.5-5.0); ALKALINE PHOSPHATASE 96 U/L (38-126); ANION GAP 14 (5-19); ASPARTATE AMINO TRANSFERASE 92 U/L (17-59); BILIRUBIN,DIRECT 0.6 mg/dL (0.0-0.4); BILIRUBIN,TOTAL 0.7 mg/dL (0.2-1.3); BLOOD UREA NITROGEN 5 mg/dL (7-20); CALCIUM 9.1 mg/dL (8.4-10.2); CARBON DIOXIDE 24 mmol/L (22-30); CHLORIDE 107 mmol/L (98-107); GLUCOSE 74 mg/dL (75-110); LIPASE 397.5 U/L (23-300); POTASSIUM 4.4 mmol/L (3.6-5.0); SODIUM 145.3 mmol/L (137-145); TOTAL PROTEIN 6.6 g/dL (6.3-8.2)
[2017-05-08 14:26] LABS: URINE BARBITURATES SCREEN UNCONFIRMED POSITIVE; URINE METHADONE SCREEN NEGATIVE; URINE OPIATES LOW NEGATIVE; URINE PHENCYCLIDINE SCREEN NEGATIVE
[2017-05-08 14:29] LABS: ABSOLUTE EOSINOPHILS# (MANUAL) 0.1 10^3/uL (0.0-0.6); BASOPHILS % (MANUAL) 1 % (0-2); EOSINOPHILS % (MANUAL) 2 % (0-6); LYMPHOCYTES % (MANUAL) 30 % (13-45); TOTAL CELLS COUNTED 100
[2017-05-08 14:30] LABS: ANISOCYTOSIS 1+; STOMATOCYTES 1+
[2017-05-08 14:34] LABS: ALCOHOL 402 mg/dL (NONE DETECTED)
--- NOTE | 2017-05-08 20:47 | EKG REPORT ---
SEVERITY:- NORMAL ECG - SINUS RHYTHM : Confirmed by: Alana Bueno 08-May-2017 20:46:25
[2017-05-08] MEDS ORDERED: NICOTINE 21 MG/24 HR PATCH.TD24 TD ONE (21:16)
[2017-05-08] MEDS ORDERED: ACETAMINOPHEN 325 MG TABLET PO ONE (21:30)
[2017-05-09] MEDS ORDERED: IBUPROFEN 400 MG TABLET PO ONE (09:29)
--- NOTE | 2017-05-09 10:00 | ER Document Report ---
Doctor's Note Notes: 05/09/17 09:59 Patient is awake eating breakfast upon my evaluation no specific complaints at this time. Currently mental health team is trying to find a place for the patient to go in the [place]. Patient does not have a bed yet. Regardless patient more likely will be discharged to [facility] today.
[2017-05-09 12:40] VITALS: BP 144/83
--- NOTE | 2017-05-09 20:52 | PSYCHOLOGICAL NOTE ---
Psych Note - Psych Note Psych Note: Patient is a 52 year old male who presented to the ED today via EMS due to blurred vision and medical clearance for alcohol detox. [facility] is involved. They have completed assessment and are actively seeking placement. [facility] confirmed patient has had a phone interview with the [facility]. He called [facility] and [facility] was going to accept however transportation was an issue. Serum Alcohol Level was 402 upon arrival to ED and UDS was positive for Barbiturates. Patient has been calm and cooperative while in the ED with the exception of sneaking outside to have a cigarette. He was caught by this clinician because he was wandering not far from his room and when directed back he smelled like smoke. When confronted he admitted it and was then cooperative with medical staff when protocol was enforced to remove all personal items. Diagnosis: 303.00 (F10.229) Alcohol Intoxication With Use Disorder, Severe Impression/Plan: Since [facility] has conducted assessment and actively seeking placement [facility] does not need to do the same. We did fax the [facility] lab work and will continue to coordinate care with [facility]. Patient is being held overnight due to his high alcohol level and the need for him to be at legal limit for any detox facility to accept him. Consulted with Dr. Gaston regarding the management and care of patient. ED Physician in agreement with recommendation.
--- NOTE | 2017-05-09 20:56 | PSYCHOLOGICAL NOTE ---
Psych Note - Psych Note Psych Note: Patient is a 52 year old male who was held overnight due to his Serum Alcohol Level of 402. [facility] is involved actively seeking voluntary alcohol detox. Patient remained calm and cooperative over night into this morning. He did complain of a headache. Diagnosis: 303.00 (F10.229) Alcohol Intoxication With Use Disorder, Severe Impression/Plan: Patient is psychiatrically cleared. Coordinated care with [facility]. Recommendation for patient to be discharged to [facility] and they will continue seeking placement while working on a plan of care. Consulted with Dr. Gaston regarding the management and care of patient. ED Physician in agreement with recommendation.
== END 2017-05-09 12:40 | disposition home or self-care (01) ==
LOC: ER 12:43
DX: F10.920 Alcohol use, unspecified with intoxication, uncomplicated (principal); H53.8 Other visual disturbances
CPT/HCPCS: 93005; 99285; 96360; 36415; 80307 ×4; 83690; 85025; 80076; 80048; 84484; 93010; J3490; J7030

== ENCOUNTER 2017-06-09 21:48 | Emergency (ER) | payer SELFPAY ==
--- NOTE | 2017-06-09 22:23 | ER Document Report ---
ED Substance Abuse / Acc. OD - General Chief Complaint: ETOH Abuse Stated Complaint: ETOH Time Seen by Provider: 06/09/17 22:21 Notes: The patient is a 52-year-old male, past medical history chronic alcoholism, presents after he called a cab and began to become belligerent while in the cab. He said that he had a lot to drink tonight. The can did not know what to do with him, so he was dropped off at the emergency room. Patient does not have any medical complaints at this time and appears to be intoxicated. TRAVEL OUTSIDE OF THE [place] IN LAST 30 DAYS: No - Related Data Allergies/Adverse Reactions: No Known Allergies Allergy (Verified 03/05/17 15:39) Past Medical History - Social History Smoking Status: Current Every Day Smoker Family History: Reviewed & Not Pertinent, COPD Pulmonary Medical History: Reports: Hx Bronchitis, Hx COPD Renal/ Medical History: Denies: Hx Peritoneal Dialysis GI Medical History: Reports: Hx Ulcer Psychiatric Medical History: Reports: Hx Bipolar Disorder Past Surgical History: Reports: Hx Abdominal Surgery - HERNIA, Hx Herniorrhaphy - Immunizations Hx Diphtheria, Pertussis, Tetanus Vaccination: Yes Review of Systems - Review of Systems Notes: REVIEW OF SYSTEMS: CONSTITUTIONAL: -fevers, -chills EENT: -eye pain, -difficulty swallowing, -nasal congestion CARDIOVASCULAR: -chest pain, -syncope. RESPIRATORY: -cough, -SOB GASTROINTESTINAL: -abdominal pain, -nausea, -vomiting, -diarrhea GENITOURINARY: -dysuria, -hematuria MUSCULOSKELETAL: -back pain, -neck pain SKIN: -rash or skin lesions. HEMATOLOGIC: -easy bruising or bleeding. LYMPHATIC: -swollen, enlarged glands. NEUROLOGICAL: -headache, -neurologic symptoms PSYCHIATRIC: -anxiety, -depression. ALL OTHER SYSTEMS REVIEWED AND NEGATIVE. Physical Exam - Notes Notes: PHYSICAL EXAMINATION: GENERAL: No acute distress. Mildly agitated, but is redirectable. Smells of ETOH. HEAD: Atraumatic, normocephalic. EYES: Pupils equal round and reactive to light, extraocular movements intact, sclera anicteric, conjunctiva are normal. ENT: nares patent, oropharynx clear without exudates. Moist mucous membranes. NECK: Normal range of motion, supple without lymphadenopathy LUNGS: Breath sounds clear to auscultation bilaterally and equal. No wheezes rales or rhonchi. HEART: Regular rate and rhythm without murmurs ABDOMEN: Soft, nontender, normoactive bowel sounds. No guarding, no rebound. No masses appreciated. EXTREMITIES: Normal range of motion, no pitting or edema. No cyanosis. NEUROLOGICAL: Cranial nerves grossly intact. Normal sensory and motor exams. SKIN: Warm, Dry, normal turgor, no rashes or lesions noted. Course - Re-evaluation Re-evalutation: 06/09/17 22:51 Pt's accucheck and vital signs are normal. No signs of head trauma and he is moving all 4 extremities. Patient has no medical complaints at this time and is only in the ER because the cab said he was too intoxicated to take him anywhere. Pt's ETOH is 487. He is normally in the 200's-300's. Will continue to monitor patient and reassess when he is clinically sober. Will provide him with referral to detox if he feels inclined. - Laboratory Laboratory results interpreted by me: 06/09/17 06/09/17 22:22 22:22 POC Glucose 127 H Serum Alcohol 487 H* Discharge - Discharge Clinical Impression: Alcohol intoxication Qualifiers: Complication of substance-induced condition: uncomplicated Qualified Code(s): F10.920 - Alcohol use, unspecified with intoxication, uncomplicated Condition: Stable Additional Instructions: ACUTE ALCOHOL INTOXICATION and ALCOHOL ABUSE: Your evaluation revealed very high levels of alcohol. You can from drinking a large amount of alcohol rapidly! Further, there's the risk of falls , traffic accidents, and fights. A high portion (about 50 percent) of the serious injuries seen in hospital emergency rooms are caused by alcohol. Alcohol overdosage is usually due to an underlying emotional or psychiatric problem. You may benefit from counselling. If "binge" drinking is an ongoing problem for you, or if you drink ANY AMOUNT of alcohol EVERY day, you most likely have a tendency to alcoholism. You should avoid alcohol totally. We can refer you for treatment. Persons with alcohol problems are often also prone to other addictions -- you should discuss any use of medications or drugs with the doctor. You should be watched at home for the next several hours by someone who has not been drinking. Get extra fluids for the next 24 hours. Call the doctor if there is repeated vomiting, increasing headache, decreasing level of alertness, or any other worsening. CHRONIC ALCOHOLISM and ALCOHOL ABUSE: Your evaluation reveals evidence of chronic alcoholism, an addiction to alcohol. The tendency to alcoholism may be inherited. Chronic use of alcohol weakens muscles, causes fatty deposits in the liver , damages the stomach, makes you more prone to infections, and can cause defects in unborn children. In the long run, brain atrophy and cirrhosis of the liver result. You are also at greater risk for certain types of cancer, such as cancer of the mouth, throat, stomach, and liver. Counselling services are available to help you. In-hospital treatment programs often help. Support groups such as Alcoholics Anonymous can be very useful in beating this addiction. Your physician can make a referral for you. As alcoholics often are prone to other addictions, you should discuss your use of any other medications with the doctor. OVERDOSE / INGESTION: You have taken more medication than you should have. After your evaluation and care, it is felt that your overdose is not likely to be harmful or of any significant consequences to you and you are being discharged. In the future, you should be careful not to take more medications than what is prescribed for you. Although your overdose does not seem to be of any danger to you at this time, if you develop any unusual or unexpected symptoms after your discharge, you should return to the Emergency Department immediately for re-evaluation. INSTRUCTIONS FOR HOME CARE FOLLOWING DRUG OVERDOSAGE: The doctor feels it's safe for you to go home. You will need to be observed. If charcoal and a laxative was given to you, expect some loose black stools soon. Take no medications unless approved by a physician, including alcohol. If drowsy, lie on your stomach or side for sleeping to avoid aspiration if vomiting occurs. Take only liquids by mouth until there is no more nausea. FOR THE OBSERVER: Observe the patient for the next 24 hours and call or go to the hospital if any of the following are noted: prolonged or repeated vomiting, difficulty in arousing, convulsions (seizures or fits), fever, persistent cough, breathing that is too slow or too rapid, or confused or bizarre behavior. If a counselling visit has been arranged, make sure the patient attends. Call the physician or poison control if you have questions. FOLLOW-UP CARE: If you have been referred to a physician for follow-up care, call the physician s office for an appointment as you were instructed or within the next two days. If you experience worsening or a significant change in your symptoms, notify the physician immediately or return to the Emergency Department at any time for re-evaluation. Referrals: [facility] [Outside] - Follow up as needed
[2017-06-10] MEDS ORDERED: NICOTINE 21 MG/24 HR PATCH.TD24 TD ONE (02:14)
[2017-06-10] MEDS ORDERED: LORAZEPAM INJ 2 MG/1 ML VIAL IM ONE (02:27)
[2017-06-10 06:12] VITALS: BP 107/84
== END 2017-06-10 06:58 | disposition home or self-care (01) ==
LOC: ER 21:48
DX: F10.920 Alcohol use, unspecified with intoxication, uncomplicated (principal); J44.9 Chronic obstructive pulmonary disease, unspecified; F17.210 Nicotine dependence, cigarettes, uncomplicated; Z78.1 Physical restraint status
CPT/HCPCS: 99285; 96372; 36415; 82962; 80307; J2060

== ENCOUNTER 2018-02-07 21:08 | Emergency (ER) | payer SELFPAY ==
--- NOTE | 2018-02-07 21:31 | ER Document Report ---
ED Medical Screen (RME) - General Chief Complaint: Fall Stated Complaint: FALL/RIB AND BACK PAIN Time Seen by Provider: 02/07/18 21:25 Mode of Arrival: Stretcher Information source: Patient Notes: Patient is a 53-year-old male presenting to the emergency department via EMS after slipping and falling in the shower 2 this evening. Patient states hit head neck and right side multiple times. Patient in c-collar via EMS. Denies any blood thinner use. TRAVEL OUTSIDE OF THE [place] IN LAST 30 DAYS: No - Related Data Allergies/Adverse Reactions: No Known Allergies Allergy (Verified 02/07/18 21:11) Past Medical History Pulmonary Medical History: Reports: Hx Bronchitis, Hx COPD Renal/ Medical History: Denies: Hx Peritoneal Dialysis GI Medical History: Reports: Hx Ulcer Psychiatric Medical History: Reports: Hx Bipolar Disorder Past Surgical History: Reports: Hx Abdominal Surgery - HERNIA, Hx Herniorrhaphy - Immunizations Hx Diphtheria, Pertussis, Tetanus Vaccination: Yes History of Influenza Vaccine for 03/2017 - 08/2017 Season: No Physical Exam - Vital signs Vitals: Temp Pulse Resp BP Pulse Ox 98.8 F 95 19 144/97 H 97 02/07/18 21:17 02/07/18 21:17 02/07/18 21:17 02/07/18 21:17 02/07/18 21:17 - Back Back: Tender, Vertebra tenderness - Cervical spine tenderness. No: Deformity/ step-off Notes: Cervical spine tenderness. Course - Vital Signs Vital signs: Temp Pulse Resp BP Pulse Ox 98.8 F 95 19 144/97 H 97 02/07/18 21:17 02/07/18 21:17 02/07/18 21:17 02/07/18 21:17 02/07/18 21:17
[2018-02-07] MEDS ORDERED: ONDANSETRON HCL INJ/PF 4 MG/2 ML SDV IV ONE (21:50)
[2018-02-07] MEDS ORDERED: HYDROMORPHONE HCL INJ/PF 2 MG/ML AMPULE IV ONE ×2 (21:50→22:48)
--- NOTE | 2018-02-07 22:23 | ER Document Report ---
ED General - General Chief Complaint: Fall Stated Complaint: FALL/RIB AND BACK PAIN Time Seen by Provider: 02/07/18 21:25 Mode of Arrival: Stretcher TRAVEL OUTSIDE OF THE [place] IN LAST 30 DAYS: No - HPI Notes: 53-year-old male states that he slipped in the bathtub. He states he fell in the tub and then fell out of the tub. He reports "hitting everything." He hurts everywhere. Denies loss of consciousness. He reports shortness of breath due to pain. He has pain in bilateral ribs left pelvis. Denies hemoptysis. He is a smoker and denies history of COPD. He occasionally drinks alcohol. Given fentanyl by EMS with minimal improvement in pain. - Related Data Allergies/Adverse Reactions: No Known Allergies Allergy (Verified 02/07/18 21:11) Past Medical History - General Information source: Patient - Social History Smoking Status: Current Every Day Smoker Family History: Reviewed & Not Pertinent, COPD Pulmonary Medical History: Reports: Hx Bronchitis, Hx COPD Renal/ Medical History: Denies: Hx Peritoneal Dialysis GI Medical History: Reports: Hx Ulcer Psychiatric Medical History: Reports: Hx Bipolar Disorder Past Surgical History: Reports: Hx Abdominal Surgery - HERNIA, Hx Herniorrhaphy - Immunizations Hx Diphtheria, Pertussis, Tetanus Vaccination: Yes Review of Systems - Review of Systems Notes: Constitutional: Negative for fever. HENT: Negative for sore throat. Eyes: Negative for visual changes. Cardiovascular: Positive for chest pain. Respiratory: Positive for shortness of breath. Gastrointestinal: Negative for abdominal pain, vomiting or diarrhea. Genitourinary: Negative for dysuria. Musculoskeletal: Positive for back pain. Positive for arthralgias Skin: Negative for rash. Neurological: Negative for headaches, weakness or numbness. 10 point ROS negative except as marked above and in HPI. Physical Exam - Vital signs Vitals: Temp Pulse Resp BP Pulse Ox 98.8 F 95 19 144/97 H 97 02/07/18 21:17 02/07/18 21:17 02/07/18 21:17 02/07/18 21:17 02/07/18 21:17 - Notes Notes: PHYSICAL EXAMINATION: GENERAL: Well-appearing, appears in pain HEAD: Atraumatic, normocephalic. EYES: Pupils equal round and reactive to light, extraocular movements intact, conjunctiva are normal. ENT: nares patent, oropharynx clear without exudates. Moist mucous membranes. NECK: Diffuse tenderness, no step-offs, c-collar in place LUNGS: Breath sounds clear to auscultation bilaterally and equal. No wheezes rales or rhonchi. Pain with inspiration HEART: Regular rate and rhythm, significant right sided chest tenderness with crepitus ABDOMEN: Soft, left lower quadrant tenderness, no ecchymosis, normoactive bowel sounds. No guarding, no rebound. No masses appreciated. EXTREMITIES: Normal range of motion, no pitting or edema. No cyanosis. NEUROLOGICAL: Cranial nerves grossly intact. Normal speech, normal gait. Normal sensory and motor exams. PSYCH: Normal mood, normal affect. SKIN: Warm, Dry, normal turgor, no rashes or lesions noted. Course - Re-evaluation Re-evalutation: 02/07/18 22:43 Patient has small hemothorax with multiple rib fractures, pulmonary contusion, and tiny pneumothorax with subcutaneous air tracking up into the back and neck, likely from ruptured bleb. Lung is inflated. Discussed with surgery, Dr. Yanes for admission. No other injuries appreciated on CTs. 02/07/18 23:35 CT shows fractures ribs 5 through 9 with 6 through 8 showing multiple segments with consideration for flail chest. Discussed with Dr. Yanes and he would prefer transfer to [facility]. Discussed with Dr. Quintana, trauma surgery, and she accepted patient in transfer. Patient updated. Pain improved. - Vital Signs Vital signs: Temp Pulse Resp BP Pulse Ox 98.8 F 95 19 144/97 H 97 02/07/18 21:17 02/07/18 21:17 02/07/18 21:17 02/07/18 21:17 02/07/18 21:17 - Laboratory Result Diagrams: 02/07/18 22:09 02/07/18 22:09 Laboratory results interpreted by me: 02/07/18 02/07/18 22:09 22:09 WBC 16.1 H RBC 4.20 L MCV 105 H MCH 36.3 H RDW 15.0 H Seg Neutrophils % 84.7 H Lymphocytes % 8.3 L Absolute Neutrophils 13.6 H Creatinine 0.50 L Discharge - Discharge Clinical Impression: Multiple rib fractures Qualifiers: Encounter type: initial encounter Fracture type: closed Laterality: right Qualified Code(s): S22.41XA - Multiple fractures of ribs, right side, initial encounter for closed fracture Subcutaneous air Qualifiers: Encounter type: initial encounter Qualified Code(s): T79.7XXA - Traumatic subcutaneous emphysema, initial encounter Pulmonary contusion Qualifiers: Encounter type: initial encounter Laterality: right Qualified Code(s): S27.321A - Contusion of lung, unilateral, initial encounter Condition: Fair Disposition: [facility], 1928–1983
[2018-02-07 22:28] LABS: ABSOLUTE BASOPHILS # (AUTO) 0.1 10^3/uL (0.0-0.2); ABSOLUTE LYMPHOCYTES (AUTO) 1.3 10^3/uL (0.5-4.7); ABSOLUTE NEUT (AUTO) 13.6 10^3/uL (1.7-8.2); BASOPHILS % (AUTO) 0.5 % (0-2); EOSINOPHILS % (AUTO) 0.1 % (0-6); HEMATOCRIT 44.3 % (37.9-51.0); HEMOGLOBIN 15.2 g/dL (13.5-17.0); LYMPHOCYTES % (AUTO) 8.3 % (13-45); MEAN CORPUSCULAR HEMOGLOBIN 36.3 pg (27.0-33.4); MEAN CORPUSCULAR HGB CONC 34.4 g/dL (32.0-36.0); MEAN CORPUSCULAR VOLUME 105 fl (80-97); MONOCYTES % (AUTO) 6.4 % (3-13); PLATELET COUNT 188 10^3/uL (150-450); SEGMENTED NEUTROPHILS % (AUTO) 84.7 % (42-78); TOTAL CELLS COUNTED % (AUTO) 100 %; WHITE BLOOD COUNT 16.1 10^3/uL (4.0-10.5)
[2018-02-07 22:46] LABS: ALANINE AMINOTRANSFERASE 26 U/L (21-72); ALKALINE PHOSPHATASE 94 U/L (38-126); ANION GAP 13 (5-19); ASPARTATE AMINO TRANSFERASE 43 U/L (17-59); BILIRUBIN,DIRECT 0.3 mg/dL (0.0-0.4); BILIRUBIN,TOTAL 0.9 mg/dL (0.2-1.3); BLOOD UREA NITROGEN 7 mg/dL (7-20); CALCIUM 8.6 mg/dL (8.4-10.2); CARBON DIOXIDE 30 mmol/L (22-30); CHLORIDE 100 mmol/L (98-107); GLUCOSE 99 mg/dL (75-110); SODIUM 142.6 mmol/L (137-145); TOTAL PROTEIN 6.8 g/dL (6.3-8.2)
--- NOTE | 2018-02-07 22:48 | RADIOLOGY REPORT (SQ) ---
EXAM DESCRIPTION: CT CERVICAL SPINE WITHOUT IV CONTRAST COMPLETED DATE/TME: 02/07/2018 21:30 CLINICAL HISTORY: 53 years Male, fall, cervical spine pain Comparison: None. Technique: No contrast. Coronal and sagittal reformat. This exam was performed according to our departmental dose-optimization program, which includes automated exposure control, adjustment of the mA and/or kV according to patient size and/or use of iterative reconstruction technique.[facility]: Dose Right [facility]: CareDose [facility]: Dose Right [facility]: Teradose 4D [facility]: InstaMed LIMITATIONS: None Findings: Moderate right apical pneumothorax. Paraseptal emphysema of the lung apices. Moderate soft tissue emphysema of the right paracentral neck. Mild disc desiccation between the C4 and C7 levels. 0.3 cm ossicular fragmentation posterior right C3 facet appears developmental. Normal alignment. Normal curvature. No fracture. Normal vertebral heights. Partially imaged nuchal soft tissues, inferior cranium, and upper thorax appear otherwise grossly intact. IMPRESSION: Moderate right apical pneumothorax. No acute defect of the cervical spine.
--- NOTE | 2018-02-07 22:51 | RADIOLOGY REPORT (SQ) ---
EXAM DESCRIPTION: XR RIBS UNILATERAL WITH CHEST COMPLETED DATE/TME: 02/07/2018 21:30 CLINICAL HISTORY: 53 years, Male, pain s/p fall COMPARISON: None. NUMBER OF VIEWS: 3 TECHNIQUE: Three view LIMITATIONS: None. FINDINGS: Small right apical pneumothorax with pleural separation measuring 2.3 cm. Moderate right supraclavicular and right nuchal soft tissue emphysema. Normal cardiac silhouette. Small right basilar effusion. Moderate emphysematous hyperinflation. Mildly displaced rib fractures including the right sixth and right seventh posterior ribs and right eighth lateral rib. IMPRESSION: Small right apical pneumothorax. Rib fractures including the right sixth, seventh, and eighth ribs. 2010 [employer]- All Rights Reserved
--- NOTE | 2018-02-07 22:53 | RADIOLOGY REPORT (SQ) ---
EXAM DESCRIPTION: CT HEAD WITHOUT IV CONTRAST COMPLETED DATE/TME: 02/07/2018 00:00 CLINICAL HISTORY: 53 years, Male, fall COMPARISON: None. TECHNIQUE: Contiguous axial images of the brain were obtained without the administration of intravenous contrast. TImages stored on PACS. All CT scanners at this facility use dose modulation, iterative reconstruction, and/or weight based dosing when appropriate to reduce radiation dose to as low as reasonably achievable (ALARA). [facility]: Dose Right [facility]: CareDose [facility]: Dose Right [facility]: Teradose 4D [facility]: [employer] LIMITATIONS: Patient motion degrades some of the images. FINDINGS: Brain: No acute intracranial hemorrhage. No territorial infarct. No mass effect. Mild cerebral atrophy. Ventricles: Within normal limits in size Bones: No acute osseous finding. Paranasal sinuses: Well aerated. Mastoid air cells: Well aerated. Soft tissues: Partially seen posterior right cervical soft tissue emphysema. Trade Clerk view shows no additional significant finding IMPRESSION: 1. No acute posttraumatic intracranial finding. 2. Partially seen right anterior cervical soft tissue emphysema. Please see CT cervical spine report for further discussion. TECHNICAL DOCUMENTATION: Quality ID # 436: Final reports with documentation of one or more dose reduction techniques (e.g., Automated exposure control, adjustment of the mA and/or kV according to patient size, use of iterative reconstruction technique) 2010 [employer]- All Rights Reserved
--- NOTE | 2018-02-07 23:22 | RADIOLOGY REPORT (SQ) ---
EXAM DESCRIPTION: CT CHEST WITH IV CONTRAST, CT ABDOMEN PELVIS WITH IV CONTRAST COMPLETED DATE/TME: 02/07/2018 21:45 (accession [id number]), 02/07/2018 21:48 (accession [id number]) CLINICAL HISTORY: Chest and right-sided abdominal pain following trauma. Rib fractures. COMPARISON: None Available. TECHNIQUE: CT of the chest, abdomen and pelvis performed following IV administration of 80 mL of Omnipaque 350. Delayed abdominal and pelvic imaging obtained. DLP: 576.45 mGycm FINDINGS: Chest: Thyroid:No abnormalities of the visualized thyroid. Great Vessels:Great vessels have normal anatomic configuration. Mild atherosclerotic vascular calcification at the origin of the left subclavian artery. Thoracic Aorta: No evidence of traumatic thoracic aortic injury. Pulmonary arteries:The main pulmonary artery is not dilated. Heart:No cardiomegaly, significant pericardial effusion, or coronary artery atherosclerosis Lymph Nodes:No enlarged mediastinal lymph nodes identified. Esophagus:No abnormalities of the esophagus identified Other: Subcutaneous air scattered throughout the right chest wall and into the right neck soft tissues. Lungs: Mild centrilobular emphysematous changes. Likely compressive atelectasis of the right lung. The left lung is clear. No left-sided pneumothorax or pleural effusion. Apical pleural-parenchymal scarring. Pleura: Small right-sided pneumothorax with small volume hemothorax in the right lung. Trachea/Airways:No abnormalities of the visualized trachea or airways. Abdomen: Liver: The liver has normal size and density. No intrahepatic mass or biliary dilatation. Gallbladder: No calcified gallstones. Spleen, Pancreas, and Adrenal Glands: The spleen, pancreas, and adrenal glands are unremarkable. Kidneys: The kidneys have normal size and contour without evidence of solid mass or hydronephrosis. Vasculature: Aortoiliac atherosclerosis. IVC is unremarkable. The portal vein is patent. The proximal visceral and renal arteries are patent. Stomach: The stomach and duodenum have normal course. Other: No free intraperitoneal air. No free fluid or lymphadenopathy. No evidence of traumatic abdominal solid organ injury. Pelvis: Bladder: Urinary bladder is unremarkable. Bowel: No dilated loops of large or small bowel. Appendix: Normal appendix. Pelvis: Prostate is not enlarged. Bones: Minimally displaced fracture of the right lateral fifth rib. Comminuted moderately displaced fracture of the right posterior sixth rib. Comminuted mildly displaced fracture of the right posterior and lateral seventh rib. Comminuted minimally displaced fracture of the right eighth rib with posterior and lateral components. Nondisplaced fracture of the right lateral ninth rib. Likely healed fracture of the posterior right 10th rib. Multilevel endplate spondylosis and facet arthropathy. Bilateral L5/S1 pars defects. No definite compression deformities of the spine. No definite abnormalities of the sternum or manubrium identified. No abnormalities of the pelvis. IMPRESSION: 1. Redemonstrated small right pneumothorax without evidence of tension or midline shift. 2. Diffuse subcutaneous air throughout the right chest wall extending into the right neck. 3. Fractures of the right fifth through ninth ribs as detailed above. The fractures of the sixth through eighth ribs are segmental. Given 3 consecutive segmental rib fractures, flail chest is a consideration. 4. No evidence of traumatic thoracic aortic injury. No evidence of traumatic abdominal solid organ injury. 5. Small right hemothorax. 6. Mild centrilobular emphysematous change. This exam was performed according to our departmental dose-optimization program, which includes automated exposure control, adjustment of the mA and/or kV according to patient size and/or use of iterative reconstruction technique.
[2018-02-07] MEDS ORDERED: HYDROMORPHONE HCL INJ/PF 2 MG/ML AMPULE IV PRN (23:45)
--- NOTE | 2018-02-07 23:52 | PDOC CONSULTATION ---
Consultation Consult Date: 02/07/18 Consult reason:: right rib fractures History of Present Illness Patient complains of: Dyspnea with severe right rib pains History of Present Illness: JUAN CONSTANTINO is a 53 year old male who slip i na tub while taking a shower this morning. As soon as he gets up again slipped and fell over the tub hitting his right chest on the side of the tub. He fell on the floor and unable to move with loss of consciousness. He then c/o exquisite pains along the right chest with dyspnea. He smokes a pack a day and drinks 2 beers /day after coming from work. He then went to ED and had CT of chest, neck and head. This showed right rib fractures fro 5th to 9th with flail chest and subcu emphysema and very small pneumothorax and hemothorax. Past Medical History Pulmonary Medical History: Reports: Bronchitis, Chronic Obstructive Pulmonary Disease (COPD) Psychiatric Medical History: Reports: Bipolar Disorder Past Surgical History Past Surgical History: Reports: Herniorrhaphy Social History Smoking Status: Current Every Day Smoker Cigarettes Packs Per Day: 1.0 Frequency of Alcohol Use: Heavy - at least 2 beers/day Hx Recreational Drug Use: Yes Drugs: Other Hx Prescription Drug Abuse: Yes - Advance Directive Resuscitation Status: Full Code Family History Family History: Reviewed & Not Pertinent, COPD Parental Family History Reviewed: Yes - mother is diabetic Children Family History Reviewed: No Sibling(s) Family History Reviewed.: No Medication/Allergy Allergies/Adverse Reactions: No Known Allergies Allergy (Verified 02/07/18 21:11) Review of Systems Constitutional: PRESENT: other - no fever/chills Eyes: PRESENT: other - no visual/hearing changes Cardiovascular: PRESENT: chest pain, other Respiratory: PRESENT: dyspnea Gastrointestinal: PRESENT: other - no abdominal pains Genitourinary: PRESENT: other - no dysuria Neurological: PRESENT: other - no seizures Physical Exam Vital Signs: Temp Pulse Resp BP Pulse Ox 98.8 F 95 19 144/97 H 97 02/07/18 21:17 02/07/18 21:17 02/07/18 21:17 02/07/18 21:17 02/07/18 21:17 Intake & Output 02/06/18 02/07/18 02/08/18 06:59 06:59 06:59 Weight 49.7 kg General appearance: PRESENT: severe distress Head exam: PRESENT: atraumatic Eye exam: PRESENT: conjunctiva pink Mouth exam: PRESENT: moist Neck exam: PRESENT: full ROM Respiratory exam: PRESENT: chest wall tenderness - exquisite tenderness, decreased breath sounds, tachypnea Cardiovascular exam: PRESENT: RRR Pulses: PRESENT: normal radial pulses GI/Abdominal exam: PRESENT: soft Rectal exam: PRESENT: deferred Extremities exam: PRESENT: full ROM Musculoskeletal exam: PRESENT: ambulatory Neurological exam: PRESENT: alert, oriented to person, oriented to place, oriented to time, oriented to situation Psychiatric exam: PRESENT: anxious Skin exam: PRESENT: normal color, warm Results Laboratory Results: 02/07/18 22:09 02/07/18 22:09 02/07/18 02/07/18 02/07/18 22:09 22:09 22:09 WBC 16.1 H RBC 4.20 L Hgb 15.2 Hct 44.3 MCV 105 H MCH 36.3 H MCHC 34.4 RDW 15.0 H Plt Count 188 Seg Neutrophils % 84.7 H Lymphocytes % 8.3 L Monocytes % 6.4 Eosinophils % 0.1 Basophils % 0.5 Absolute Neutrophils 13.6 H Absolute Lymphocytes 1.3 Absolute Monocytes 1.0 Absolute Eosinophils 0.0 Absolute Basophils 0.1 Sodium 142.6 Potassium 4.0 Chloride 100 Carbon Dioxide 30 Anion Gap 13 BUN 7 Creatinine 0.50 L Est GFR ( Amer) > 60 Est GFR (Non-Af Amer) > 60 Glucose 99 Calcium 8.6 Total Bilirubin 0.9 AST 43 ALT 26 Alkaline Phosphatase 94 Total Protein 6.8 Albumin 4.0 Blood Type O NEGATIVE Antibody Screen NEGATIVE Impressions: Head CT 02/07/18 00:00 IMPRESSION: 1. No acute posttraumatic intracranial finding. 2. Partially seen right anterior cervical soft tissue emphysema. Please see CT cervical spine report for further discussion. TECHNICAL DOCUMENTATION: Quality ID # 436: Final reports with documentation of one or more dose reduction techniques (e.g., Automated exposure control, adjustment of the mA and/or kV according to patient size, use of iterative reconstruction technique) 2010 [employer]- All Rights Reserved Cervical Spine CT 02/07/18 21:30 IMPRESSION: Moderate right apical pneumothorax. No acute defect of the cervical spine. Ribs w/Chest X-Ray 02/07/18 21:30 IMPRESSION: Small right apical pneumothorax. Rib fractures including the right sixth, seventh, and eighth ribs. 2010 [facility] [employer]- All Rights Reserved Chest CT 02/07/18 21:45 IMPRESSION: 1. Redemonstrated small right pneumothorax without evidence of tension or midline shift. 2. Diffuse subcutaneous air throughout the right chest wall extending into the right neck. 3. Fractures of the right fifth through ninth ribs as detailed above. The fractures of the sixth through eighth ribs are segmental. Given 3 consecutive segmental rib fractures, flail chest is a consideration. 4. No evidence of traumatic thoracic aortic injury. No evidence of traumatic abdominal solid organ injury. 5. Small right hemothorax. 6. Mild centrilobular emphysematous change. This exam was performed according to our departmental dose-optimization program, which includes automated exposure control, adjustment of the mA and/or kV according to patient size and/or use of iterative reconstruction technique. Abdomen/Pelvis CT 02/07/18 21:48 IMPRESSION: 1. Redemonstrated small right pneumothorax without evidence of tension or midline shift. 2. Diffuse subcutaneous air throughout the right chest wall extending into the right neck. 3. Fractures of the right fifth through ninth ribs as detailed above. The fractures of the sixth through eighth ribs are segmental. Given 3 consecutive segmental rib fractures, flail chest is a consideration. 4. No evidence of traumatic thoracic aortic injury. No evidence of traumatic abdominal solid organ injury. 5. Small right hemothorax. 6. Mild centrilobular emphysematous change. This exam was performed according to our departmental dose-optimization program, which includes automated exposure control, adjustment of the mA and/or kV according to patient size and/or use of iterative reconstruction technique. Assessment & Plan - Diagnosis (1) Flail chest Is this a current diagnosis for this admission?: Yes (2) Multiple rib fractures Qualifiers: Encounter type: initial encounter Fracture type: closed Laterality: right Qualified Code(s): S22.41XA - Multiple fractures of ribs, right side, initial encounter for closed fracture (3) Pulmonary contusion Qualifiers: Encounter type: initial encounter Laterality: right Qualified Code(s): S27.321A - Contusion of lung, unilateral, initial encounter (4) Subcutaneous air Qualifiers: Encounter type: initial encounter Qualified Code(s): T79.7XXA - Traumatic subcutaneous emphysema, initial encounter - Time Time Spent: 30 to 50 Minutes - Inpatient Certification Medical Necessity: Need Close Monitoring Due to Risk of Patient Decompensation, Need For IV Fluids, Need For Continuous Telemetry Monitoring, Need for Neurological Checks, Need for Pain Control, Need for IV Antibiotics, Risk of Complication if Not Cared For in Hospital - Plan Summary Plan Summary: Patient has multiple injuries sustained from his fall in and out of bath tub. 1)right 5th-9th rib fractures with flail chest 2) Subcu emphysema with very small right pneumothorax and hemothorax 3) Concussion 4) Smoker with blebs on CT chest 5) alcohol abuser with possible eventual withdrawal syndrome Considering above conditions with patient having exquisite chest pains with pain mx a problem, he will be best taken cared of in a tertiary care facility to prevent further complications. Discussed with ER Physician.
--- NOTE | 2018-02-08 00:33 | ER Document Report ---
Doctor's Note Notes: 02/08/18 00:32 53-year-old man with several rib fractures in the setting of a fall. Current plan is for patient undergo transfer [facility] in [place] for trauma evaluation and assessment. On evaluation this patient is hemodynamically stable at this time, on nasal cannula for oxygenation. Patient appears stable for transport at this time. Current plan will be for patient to be discharged in the care of the [facility] critical care transport team with transfer to [facility].
[2018-02-08 00:57] VITALS: BP 141/84
--- NOTE | 2018-02-08 08:23 | EKG REPORT ---
SEVERITY:- ABNORMAL ECG - SINUS RHYTHM NEW T INVERSIONS ANTEROSEPTAL LEAD COMPARE DWITH 05/08/17 : Confirmed by: Kunal Sepulveda MD 08-Feb-2018 07:42:29
[2018-02-08] MEDS ORDERED: LIDOCAINE 5% (700 MG) TRANSDERMAL ADH..PATCH TP SCH (10:00)
== END 2018-02-08 00:44 | disposition short-term general hospital (02) ==
LOC: ER 21:08 → EH 23:26 → UNDOADMIN 23:26 → UNDODISIN 02-08 00:43
DX: T79.7XXA Traumatic subcutaneous emphysema, initial encounter (principal); S27.321A Contusion of lung, unilateral, initial encounter; S22.41XA Multiple fractures of ribs, right side, initial encounter for closed fracture; R07.81 Pleurodynia; M54.9 Dorsalgia, unspecified; R06.02 Shortness of breath; M25.50 Pain in unspecified joint; W18.2XXA Fall in (into) shower or empty bathtub, initial encounter; F17.200 Nicotine dependence, unspecified, uncomplicated; J44.9 Chronic obstructive pulmonary disease, unspecified
CPT/HCPCS: 93005; 96376; 99285; 96374; 96375; 86900; 86901; 36415; 86850; 85025; 80053; 71101; 70450; 71260; 72125; 74177; 93010; J1170 ×2; J2405

== ENCOUNTER 2018-02-26 00:32 | Emergency (ER) | payer SELFPAY ==
[2018-02-26 00:48] VITALS: BP 123/79
== END 2018-02-26 01:50 | disposition left against medical advice (07) ==
LOC: ER 00:32
DX: Z53.21 Procedure and treatment not carried out due to patient leaving prior to being seen by health care provider (principal)

== ENCOUNTER 2018-10-04 12:06 | Day surgery (SDC) | payer OTHER ==
[~2018-10-04 12:06] MED LIST: BUPIVACAINE HCL 0.5%-EPI 1:200000 INJ/PF 30 ML VIAL ONE; CEFAZOLIN 1 GM/D5W RTU 1 GM/50 ML RTUPB IV ONE; CEFAZOLIN 1 GM/D5W RTU 1 GM/50 ML RTUPB IV PRN; SUCCINYLCHOLINE CHLORIDE INJ 200 MG/10 ML VIAL ONE
[2018-10-04 13:46] LABS: ABSOLUTE BASOPHILS # (AUTO) 0.1 10^3/uL (0.0-0.2); ABSOLUTE EOSINOPHILS # (AUTO) 0.6 10^3/uL (0.0-0.6); ABSOLUTE LYMPHOCYTES (AUTO) 2.7 10^3/uL (0.5-4.7); ABSOLUTE MONOCYTES (AUTO) 0.6 10^3/uL (0.1-1.4); ABSOLUTE NEUT (AUTO) 6.1 10^3/uL (1.7-8.2); BASOPHILS % (AUTO) 1.2 % (0-2); EOSINOPHILS % (AUTO) 5.8 % (0-6); HEMATOCRIT 42.1 % (37.9-51.0); HEMOGLOBIN 14.4 g/dL (13.5-17.0); LYMPHOCYTES % (AUTO) 26.6 % (13-45); MEAN CORPUSCULAR HEMOGLOBIN 30.8 pg (27.0-33.4); MEAN CORPUSCULAR HGB CONC 34.2 g/dL (32.0-36.0); MEAN CORPUSCULAR VOLUME 90 fl (80-97); MONOCYTES % (AUTO) 5.8 % (3-13); PLATELET COUNT 232 10^3/uL (150-450); RED BLOOD COUNT 4.68 10^6/uL (4.35-5.55); RED CELL DISTRIBUTION WIDTH 13.5 % (11.5-14.0); SEGMENTED NEUTROPHILS % (AUTO) 60.6 % (42-78); TOTAL CELLS COUNTED % (AUTO) 100 %
[2018-10-04] MEDS ORDERED: FENTANYL CITRATE INJ/PF 250 MCG/5 ML AMPULE ONE (14:41)
[2018-10-04] MEDS ORDERED: PROPOFOL INJ 200 MG/20 ML VIAL IV ONE (14:41)
[2018-10-04] MEDS ORDERED: MIDAZOLAM 2 MG/2 ML INJ ONE (14:41)
[2018-10-04] MEDS ORDERED: ONDANSETRON HCL INJ/PF 4 MG/2 ML SDV ONE (14:41)
[2018-10-04] MEDS ORDERED: DEXAMETHASONE SOD PHOSPHATE INJ 4 MG/1 ML VIAL ONE (14:41)
[2018-10-04] MEDS ORDERED: DIPHENHYDRAMINE HCL 50 MG/ML VIAL IV PRN (15:29)
[2018-10-04] MEDS ORDERED: FENTANYL CITRATE INJ/PF 100 MCG/2 ML AMPUL IV PRN ×3 (15:29)
[2018-10-04] MEDS ORDERED: PROMETHAZINE HCL INJ 25 MG/1 ML VIAL IV PRN (15:29)
[2018-10-04] MEDS ORDERED: MEPERIDINE HCL/PF INJ 25 MG/1 ML DISP.SYRIN IV PRN (15:29)
--- NOTE | 2018-10-04 15:48 | Operative Report ---
Nonrecallable Operative Report DATE OF SURGERY: 10/04/18 PREOPERATIVE DIAGNOSIS: skin lesion right hip POSTOPERATIVE DIAGNOSIS: skin lesion rt hip OPERATION: excision skin lesion rt hip SURGEON: GILSON CLEMENTE 1ST INSERT OPERATOR: KIERSTEN COOL ANESTHESIA: GA TISSUE REMOVED OR ALTERED: skin lesion rt hip COMPLICATIONS: none ESTIMATED BLOOD LOSS: 10cc INTRAOPERATIVE FINDINGS: see dictation PROCEDURE: see dictation
[2018-10-04] MEDS ORDERED: OXYCODONE-ACETAMINOPHEN 5-325 MG TABLET PO PRN (15:53)
--- NOTE | 2018-10-04 15:53 | Discharge Summary ---
Discharge Summary (SDC) - Discharge Final Diagnosis: skin lesion rt hip Date of Surgery: 10/04/18 Discharge Date: 10/04/18 Condition: Good Forms: ASU Anesthesia D/C Instruction, Discharge POC-Surgical Service Referrals: GILSON CLEMENTE MD [ACTIVE STAFF] - Discharge Diet: As Tolerated Discharge Activity: Activity As Tolerated, Balance Activity w/Rest, No Lifting Over 10 Pounds, Slowly Increase Activity, Other - keep dressing dry for 3-4 days , then removed and can get wet otherwise can shower, but keep dry. Report the Following to Your Physician Immediately: Shortness of Breath, Nausea, Vomiting, Increase in Pain, Yellow Skin, Fever over 101 Degrees, Unusual Bleeding, Swelling
--- NOTE | 2018-10-04 16:29 | OPERATIVE REPORT E ---
Operative Report NAME: JUAN CONSTANTINO : 1965 AGE: 53Y DATE OF SURGERY: 10/04/2018 ROOM: PREOPERATIVE DIAGNOSIS: SKIN LESION RIGHT ANTERIOR HIP. POSTOPERATIVE DIAGNOSIS: SKIN LESION RIGHT ANTERIOR HIP. OPERATION: Excision of skin lesion right anterior hips. SURGEON: GILSON CLEMENTE M.D. IRRIGATOR SPRINKLING SYSTEM: BO Humphries who was present for entire case for wound retraction and help with dissection and wound closure. INDICATIONS FOR PROCEDURE: This is a 53-year-old male who has had a 2-3 year history of growing verrucous lesion on his right anterior hip to the point it has become quite large over the last few months and he sought out a surgeon for excision. He was seen in the office yesterday and it is obvious that he has very large verrucous lesion on the right anterior hip. Unsure of the pathology and he was, therefore, scheduled for this excision. The lesion is approximately 15 cm long by about 8 cm wide. DETAILS OF PROCEDURE: After adequate prep and drape an elliptical incision was made that extended from the medial aspect of the right anterior hip to the lateral aspect encompassing the entire lesion at its border. We made an incision with a 15 blade and carried that down through the subcutaneous tissue and then excised the skin underneath the lesion, with the lesion itself, with Bovie cautery. This took us down to the subcutaneous tissue. Hemostasis was obtained with Bovie cautery. We then closed the subdermal layer with interrupted 3-0 Vicryl sutures and closing the skin with interrupted placed 3-0 Nylon sutures. A sterile dressing was applied, which completed the procedure. Estimated blood loss was less than 10 mL. Sponge and needle counts correct x2. The patient was transferred to recovery in stable condition. Pathology is pending. DICTATING PHYSICIAN: GILSON CLEMENTE M.D. [id number] PHY#: [id number] ID: [id number] JOB#: [id number] ACCT: [id number] cc:GILSON CLEMENTE M.D. >
[2018-10-04 17:22] VITALS: BP 129/79
--- NOTE | 2018-10-04 23:24 | EKG REPORT ---
SEVERITY:- NORMAL ECG - SINUS RHYTHM : Confirmed by: Alana Bueno 04-Oct-2018 23:23:03
== END 2018-10-04 17:18 | disposition home or self-care (01) ==
LOC: OROUT 12:06
PROVIDERS: ATTEND Surgery
DX: B07.9 Viral wart, unspecified (principal); M79.604 Pain in right leg
CPT/HCPCS: 36415; 85025; 88305 ×2; 93005; 93010; 27043; J2250; J3490; J0690; J1100; J3010; J0330; J2405; J2704; 400

== ENCOUNTER 2019-09-01 12:18 | Emergency (ER) | payer OTHER ==
[2019-09-01 12:25] VITALS: BP 128/62
--- NOTE | 2019-09-01 12:41 | ER Document Report ---
HPI - HPI Time Seen by Provider: 09/01/19 12:32 Pain Level: 5 Notes: 54 yr old male presents to the emergency room for complaints of right upper jaw pain and swelling that started 2 days ago. Patient not been seen by dentist. Denies any fevers or chills. Pain is 3 out of 10, sharp and achy. Patient has had extensive dental decay and has had several teeth broken off due to neglect of his dental hygiene. Denies fevers, chills, chest pain,palpitations, shortness of breath, dyspnea, nausea, vomiting, diarrhea, abdominal pain, hematuria,blurred vision, double vision, loss of vision, speech changes, LH, dizziness, syncope, headaches, wheezing, ST, URI, neck pain, weakness, bowel or bladder dysfunction, saddle anesthesia, numbness or tingling in bilateral upper or lower extremities equally, muscle paralysis, weakness in bilateral upper or lower extremities equally or rash. Past Medical History - General Information source: Patient - Social History Smoking Status: Current Every Day Smoker Frequency of alcohol use: None Drug Abuse: None Family History: Reviewed & Not Pertinent, COPD Patient has suicidal ideation: No Patient has homicidal ideation: No - Past Medical History Cardiac Medical History: Denies: Hx Coronary Artery Disease, Hx Heart Attack, Hx Hypertension Pulmonary Medical History: Denies: Hx Asthma, Hx Bronchitis, Hx COPD, Hx Pneumonia Neurological Medical History: Denies: Hx Cerebrovascular Accident, Hx Seizures Renal/ Medical History: Denies: Hx Peritoneal Dialysis GI Medical History: Reports: Hx Ulcer Musculoskeletal Medical History: Denies Hx Arthritis Psychiatric Medical History: Reports: Hx Bipolar Disorder Past Surgical History: Reports: Hx Abdominal Surgery - HERNIA, Hx Herniorrhaphy - Immunizations Hx Diphtheria, Pertussis, Tetanus Vaccination: Yes Vertical Provider Document - CONSTITUTIONAL Agree With Documented VS: Yes Exam Limitations: No Limitations General Appearance: WD/WN Notes: PHYSICAL EXAMINATION:reviewed vital signs by RN GENERAL: Well-appearing, well-nourished and in no acute distress. HEAD: Atraumatic, normocephalic. EYES: Pupils equal round and reactive to light, extraocular movements intact, sclera anicteric, conjunctiva are normal. ENT: Nares patent, oropharynx clear without exudates. Moist mucous membranes. TM with effusion bilaterally, no erythema. TMs intact. #13-15 gingiva with swelling, erythema and induration. no teeth in upper gums. No drainage or open wounds. No fluctuance. No facial swelling. Poor oral dentition, right upper jaw with moderate dental caries, no definite swelling or effusion. no trismus noted. Uvula is midline NECK: Normal range of motion, supple without lymphadenopathy LUNGS: Breath sounds clear to auscultation bilaterally and equal. No wheezes rales or rhonchi. HEART: Regular rate and rhythm without murmurs ABDOMEN: Soft, nontender, nondistended abdomen. No guarding, no rebound. No masses appreciated. Musculoskeletal: Normal range of motion, no pitting or edema. No cyanosis. NEUROLOGICAL: Cranial nerves grossly intact. Normal speech, normal gait. Normal sensory, motor exams PSYCH: Normal mood, normal affect. SKIN: Warm, Dry, normal turgor, no rashes or lesions noted. - INFECTION CONTROL TRAVEL OUTSIDE OF THE [place] IN LAST 30 DAYS: No Course - Re-evaluation Re-evalutation: 09/01/19 12:42 Afebrile vital stable no distress. Nurses notes reviewed. Discussed with patient he needs to take antibiotics as directed, follow-up with dentist, avoid smoking. After performing a Medical Screening Examination, I estimate there is LOW risk for a DEEP SPACE INFECTION (e.g., JAMAL'S ANGINA OR RETROPHARYNGEAL ABSCESS), MENINGITIS, INTRACRANIAL HEMORRHAGE, or AIRWAY COMPROMISE, thus I consider the discharge disposition reasonable. Also, there is no evidence or peritonitis, sepsis, or toxicity. I have reevaluated this patient multiple times and no significant life threatening changes are noted. The patient and I have discussed the diagnosis and risks, and we agree with discharging home with close follow-up with the understanding that symptoms and presentations can change. We also discussed returning to the Emergency Department immediately if new or worsening symptoms occur. We have discussed the symptoms which are most concerning (e.g., changing or worsening pain, trouble swallowing or breathing, neck stiffness or fever) that necessitate immediate return. - Vital Signs Vital signs: Temp Pulse Resp BP Pulse Ox 98.9 F 109 H 14 128/62 H 94 09/01/19 12:22 09/01/19 12:22 09/01/19 12:22 09/01/19 12:22 09/01/19 12:22 Discharge - Discharge Clinical Impression: Dental caries Condition: Stable Disposition: HOME, SELF-CARE Instructions: Clindamycin ([facility]), [facility], Toothache ([facility]), Dentist Additional Instructions: Take antibiotics with food, take as directed. Please avoid smoking while you are being treated for this dental infection. Please follow-up with a dentist within the next 24 to 48 hours. Return immediately for any new or worsening symptoms. Follow up with primary care provider, call tomorrow to make followup appoin tment. Prescriptions: Clindamycin HCl 300 mg PO Q6H #28 capsule Referrals: CHAIM VO MD [ACTIVE STAFF] - Follow up as needed
== END 2019-09-01 12:40 | disposition home or self-care (01) ==
LOC: ER 12:18
DX: K02.9 Dental caries, unspecified (principal); F17.200 Nicotine dependence, unspecified, uncomplicated
CPT/HCPCS: 99282